=== PATIENT | female | born 1965 | race Caucasian/White ===

== ENCOUNTER 2020-12-13 14:48 | Emergency (ER) | payer MEDICARE, MEDICAID, SELFPAY | END 2020-12-13 15:00 | disposition left against medical advice (07) | LOC: EXPCOLL 14:54 | PROVIDERS: Emergency Provider Nurse Practitioner; PCP Nurse Practitioner Family | DX: Z53.21 Procedure and treatment not carried out due to patient leaving prior to being seen by health care provider (principal) | CPT/HCPCS: 99199 ==

== ENCOUNTER 2020-12-13 15:18 | Emergency (ER) | payer MEDICARE, MEDICAID, SELFPAY ==
[2020-12-13 15:23] VITALS: BP 163/81; PULSE 90; RESP 14; TEMP 36.5; O2SAT 99
[2020-12-13 15:31] VITALS: BP 142/78; PULSE 90; RESP 16; TEMP 36.5; O2SAT 98
--- NOTE | 2020-12-13 16:00 | ED.GENADULT ---
HPI - General Adult General Chief complaint: Eye Problems Stated complaint: redness around right eye Time Seen by Provider: 12/13/20 15:33 History of Present Illness HPI narrative: Patient is a 55-year-old female who presents ER with multiple complaints. First complaint is little bit of redness beneath her right eye. She awoke with this this morning. It is itchy in nature. There is no pustules or vesicles. There is no pain to the eye or change in vision. No tearing. No sinus congestion or sore throat or cough. Patient also reports that she developed some dental pain 2 days ago when her tooth broke off eating a candy bar. She thinks she may have a dental infection is causing the redness to the eye. Lastly patient is noticed some pus that it occasionally comes out of her left great toe since having her toenail removed over a year ago. The foot and toe are not red or hot or swollen. She has no pain. Last drainage that she had was yesterday. Related Data Home Medications Medication Instructions Recorded Confirmed hydrochlorothiazide 12/13/20 losartan 12/13/20 metformin mg PO 12/13/20 Allergies Allergy/AdvReac Type Severity Reaction Status Date / Time No Known Drug Allergies Allergy Unknown Unknown Verified 12/13/20 15:35 Review of Systems Constitutional: Constitutional: Denies chills, Denies fever(s) and Denies weakness Eyes: Eyes: Denies change in vision and Denies photophobia Comments: Redness beneath right eye ENT: Denies nasal congestion and Denies sore throat Musculoskeletal: Musculoskeletal: Denies arthralgias, Denies joint swelling and Denies muscle cramps Integumentary/Breasts: Skin/Breast: Reports pruritus, Reports erythema and Denies rash PMFSH Past Medical History Medical History (Updated 12/13/20 @ 16:11 by Erick Matthews MD) Diabetes Hypertension Stroke Surgical History Surgical History (Updated 12/13/20 @ 16:07 by Erick Matthews MD) H/O tubal ligation Social History Social History (Updated 12/13/20 @ 16:07 by Erick Matthews MD) Smoking status: Current every day smoker Exam Narrative: Exam Narrative: GENERAL: Well-appearing, well-nourished, and in no acute distress. HEAD: Normocephalic, atraumatic. EYES: PERRLA and EOMI. Mild redness beneath the right eye with normal conjunctiva and no tearing or discharge. No vesicles or pustules. No infection to the lashes. ENT: Mucous membranes moist. Poor dentition without discernible abscess to drain. EXTREMITIES: Focused exam left great toe reveals a nearly remove toenail. No expressible purulence. No redness or tenderness or warmth. NEURO: Alert and oriented x3. PSYCH: Normal mood and affect. Course Course Emergency Course: Keflex should be adequate to cover: Intentional infection of the payy-huee-idi gentleman Saman right ear the eye 3 weeks as well as potential dental infection. Vital Signs Vital signs: Vital Signs Temperature 97.7 F 12/13/20 15:23 Pulse Rate 90 12/13/20 15:23 Respiratory Rate 14 12/13/20 15:23 Blood Pressure 163/81 H 12/13/20 15:23 Pulse Oximetry 99 12/13/20 15:23 Temperature 97.7 F 12/13/20 15:31 Pulse Rate 90 12/13/20 15:31 Respiratory Rate 16 12/13/20 15:31 Blood Pressure 142/78 H 12/13/20 15:31 Pulse Oximetry 98 12/13/20 15:31 Medical Decision Making Vital Signs Vital Signs: Vital Signs Temperature 97.7 F 12/13/20 15:23 Pulse Rate 90 12/13/20 15:23 Respiratory Rate 14 12/13/20 15:23 Blood Pressure 163/81 H 12/13/20 15:23 Pulse Oximetry 99 12/13/20 15:23 Temperature 97.7 F 12/13/20 15:31 Pulse Rate 90 12/13/20 15:31 Respiratory Rate 16 12/13/20 15:31 Blood Pressure 142/78 H 12/13/20 15:31 Pulse Oximetry 98 12/13/20 15:31 Discharge Plan Discharge Clinical Impression: Cellulitis of face, Pain, dental Patient Disposition: Home, Self-Care Condition: Stable Instructions: Antibiotic Form, Cellul
== END 2020-12-13 16:24 | disposition home or self-care (01) ==
PROVIDERS: Emergency Provider Emergency Medicine; PCP Nurse Practitioner Family
DX: L03.211 Cellulitis of face (principal); K08.89 Other specified disorders of teeth and supporting structures; E11.9 Type 2 diabetes mellitus without complications; I10 Essential (primary) hypertension; Z86.73 Personal history of transient ischemic attack (TIA), and cerebral infarction without residual deficits; F17.200 Nicotine dependence, unspecified, uncomplicated; Z79.84 Long term (current) use of oral hypoglycemic drugs
CPT/HCPCS: 99283

== ENCOUNTER 2021-12-16 19:38 | Emergency (ER) | payer MEDICARE, MEDICAID, SELFPAY ==
[2021-12-16] VITALS (13 sets, daily range): BP systolic 112–131; BP diastolic 69–87; PULSE 78–92; RESP 12–26; TEMP 36.8; O2SAT 95–100
--- NOTE | ~2021-12-16 | XR_ITS ---
XR chest 2V DATE: 12/16/2021 21:45 INDICATION: Tracheostomy confirmation TECHNIQUE: AP chest COMPARISON: None FINDINGS: A tracheostomy tube appears in satisfactory position. Normal heart size. No hilar or mediastinal enlargement. No pulmonary infiltrate or consolidation. Minimal discoid atelectasis or scarring at the left lung ba se. No pleural effusion or pulmonary vascular congestion or pneumothorax. IMPRESSION: Tracheostomy in satisfactory position Minimal discoid atelectasis or scarring at left base Reviewed, dictated and finalized at location A.
--- NOTE | 2021-12-16 19:55 | PC.NURSE ---
Dr. Posada replaced 3.0 shiley intially and then used 5.0 shiley to keep trachostomy open.
--- NOTE | 2021-12-16 21:21 | PC.NURSE ---
Dtr at bedside. No complaints. Dtr states she will like to transport pt home.
--- NOTE | 2021-12-16 21:26 | ED.SOB ---
HPI - SOB/Dyspnea General Chief Complaint: Shortness of Breath/Dyspnea Stated Complaint: SOB, TRACH Time Seen by Provider: 12/16/21 19:58 Source: patient, family and old records reviewed History of Present Illness HPI Narrative: Patient presented with trach dislodgment. Patient has a history of dislodging her trach. She has had a trach for approximately 5 months which was performed at [facility] [place] she took her trach ties off because they thought was choking her and she coughed her trach out family tried to replace the trach however she has a history of her trach site closing very rapidly called EMS EMS was unable to place any device in the trach site and she was brought into the ER for by. Related Data Home Medications Medication Instructions Recorded Confirmed hydrochlorothiazide 12/13/20 losartan 12/13/20 metformin mg PO 12/13/20 Allergies Allergy/AdvReac Type Severity Reaction Status Date / Time No Known Drug Allergies Allergy Unknown Unknown Verified 12/13/20 15:35 Review of Systems Review of Systems: ROS unobtainable: Yes unobtainable due to medical condition PMFSH Past Medical History Medical History Diabetes Hypertension Stroke Surgical History Surgical History H/O tubal ligation Social History Social History Smoking status: Current every day smoker Exam Narrative: GENERAL: Well-appearing, well-nourished. HEAD: Normocephalic, atraumatic. EYES: PERRLA and EOMI. ENT: Nares clear, no rhinorrhea or epistaxis. Mucous membranes moist. NECK: Supple. No masses. No JVD CHEST: Diffuse rhonchi, mild respiratory distress HEART: Regular rate and rhythm. No murmur heard. Normal peripheral pulses. ABDOMEN: Soft, nontender, nondistended, normal active bowel sounds. EXTREMITIES: Normal range of motion. No edema. SKIN: Warm, dry, no rash. NEURO: No focal deficits. Alert and oriented x3. PSYCH: Normal mood and affect. Course Reevaluation(s) Reevaluation #1: Patient feels much better after her trach replacement history and plan confirmed with patient and family patient refused any further interventions regarding her tracheostomy site Date: 12/16/21 Time: 21:31 Vital Signs Vital signs: Vital Signs Temperature 36.8 C 12/16/21 19:41 Pulse Rate 92 12/16/21 19:41 Respiratory Rate 20 12/16/21 19:41 Blood Pressure 112/69 12/16/21 19:41 Pulse Oximetry 96 12/16/21 19:41 Temperature 36.8 C 12/16/21 19:49 Pulse Rate 86 12/16/21 21:15 Respiratory Rate 22 H 12/16/21 22:25 Blood Pressure 131/69 12/16/21 21:02 Pulse Oximetry 99 12/16/21 22:25 Procedures Other Procedure Procedure 1: Other Procedure: Emergent replacement concent not obtained. tracheotomy pathway visulized 5.0 Shiley replaced pt tolerated procedure MDM - SOB/Dyspnea MDM Narrative Medical decision making narrative: H&P as above, vss, pt looks clinically well, exam with patient in mild respiratory distress, imaging with appropriate placement of trach tube additional labs/img considered, symptomatic relief available as needed, on reevaluation pt continues to looks clinically well. Suspect patient did because her trach tube dislodgment because she did not use her trach ties. plan to tx/monitor as op w/ pcm f/u findings/plan discussed with pt, pt agree/comfortable with plan, return precautions given Imaging Data Radiologist's impression: Impressions Chest X-Ray 12/16/21 21:57 IMPRESSION: Tracheostomy in satisfactory position Minimal discoid atelectasis or scarring at left base Critical Care Time Critical Care Time Critical Care Time: Yes Total Critical Care Time: 30 Discharge Plan Discharge Clinical Impression: Trachea displaced Patient Disposition: Home, Self-Care Condition: Improved Instructions: A
== END 2021-12-16 22:26 | disposition home or self-care (01) ==
PROVIDERS: Emergency Provider Emergency Medicine; PCP Nurse Practitioner Family
DX: Z43.0 Encounter for attention to tracheostomy (principal); E11.9 Type 2 diabetes mellitus without complications; I10 Essential (primary) hypertension; Z86.73 Personal history of transient ischemic attack (TIA), and cerebral infarction without residual deficits; Z79.84 Long term (current) use of oral hypoglycemic drugs; F17.210 Nicotine dependence, cigarettes, uncomplicated
CPT/HCPCS: 71046; 99284

== ENCOUNTER 2022-03-12 10:25 | Inpatient (IN) | payer MEDICARE, MEDICAID, SELFPAY ==
[2022-03-12] VITALS (28 sets, daily range): BP systolic 104–141; BP diastolic 70–106; PULSE 86–117; RESP 13–31; TEMP 36.2–36.6; O2SAT 90–100; BMI 24.2
--- NOTE | ~2022-03-12 | XR_ITS ---
EXAM: XR G tube replacement w image DATE: 03/18/2022 15:14 HISTORY: g tube replaced today . COMPARISON: None available. FINDINGS: Contrast instillation via G-tube, with contrast filling the stomach. No extravasation. Nor mal bowel gas pattern. No organomegaly. No abnormal abdominal calcification. Regional bones and soft tissues normal for age. IMPRESSION: Appropriately positioned G-tube. Reviewed, dictated and finalized at location K.
--- NOTE | ~2022-03-12 | XR_ITS ---
XR chest 1V portable 03/12/2022 10:56 Indication: Shortness of breath Procedure: AP portable chest Comparison: 12/16/2021 Findings: Cardiomegaly. There is bilateral interstitial infiltrates which may represent pneumonia or edema. There is left basilar atelectasis/scarring. No acute osseous abnormality. There is a gastric t ube. Impression: 1: Bilateral interstitial infiltrates may represent edema or pneumonia. Reviewed, dictated and finalized at location B. Impression: 1: Bilateral interstitial infiltrates may represent edema or pneumonia.
--- NOTE | ~2022-03-12 | XR_ITS ---
XR chest 1V portable 03/16/2022 05:35 Indication: Pneumonia Procedure: AP portable chest Comparison: 03/12/2022 and 12/16/2021 Findings: There are bibasilar infiltrates which are unchanged from 03/12/2022 which may reflect atele ctasis or pneumonia. Mildly elevated right diaphragm. Heart size normal. No significant pleural effus ion, edema or pneumothorax. No acute osseous abnormality. Impression: 1: Bibasilar infiltrates may reflect atelectasis and/or pneumonia. Reviewed, dictated and finalized at location A. Impression: 1: Bibasilar infiltrates may reflect atelectasis and/or pneumonia.
[2022-03-12] MEDS: MORPHINE SULFATE (*CRX) 4 MG/ML INJ IV PUSH (10:41)
--- NOTE | 2022-03-12 10:43 | ECG_ITS ---
Measurements Intervals [place] Rate: 104 P: 74 NV: 157 QRS: 0 QRSD: 92 T: 5 QT: 373 QTc: 492 Interpretive Statements SINUS TACHYCARDIA MINIMAL ST DEPRESSION [0.025+ mV ST DEPRESSION] NONSPECIFIC ST CHANGES, WITH BORDERLINE ELEVATION LEAD V2 ABNORMAL RHYTHM ECG NO PREVIOUS ECG AVAILABLE FOR COMPARISON Electronically Signed On 03-12-2022 22:11:43 CDT by Marcia Hernandez M.D.
[2022-03-12] MEDS: LORazepam INJ (*CRX) 2 MG/ML VIAL 0.5 MG IV PUSH (10:51)
[2022-03-12 11:16] LABS: Basophils Percent Auto 0.5 % (0.2-1.2); Eosinophils Absolute Auto 0.5 K/mm3 (0-0.3); Eosinophils Percent Auto 6.1 % (0-4.4); Hematocrit 37.4 % (37.0-47.0); Hemoglobin 11.4 g/dL (12.0-15.0); Immature Granulocyte Absolute 0.02 K/mm3 (0.00-0.031); Immature Granulocyte Percent A 0.2 % (0-0.5); Lymphocytes Absolute Auto 3.13 K/mm3 (0.9-3.2); Mean Corpuscular HGB Conc 30.5 g/dl (32-36); Mean Corpuscular Hemoglobin 27.4 pg (26-34); Mean Corpuscular Volume 89.9 fl (80-100); Mean Platelet Volume 11.4 fl (7.4-10.4); Monocytes Absolute Auto 0.5 K/mm3 (0.1-0.6); Monocytes Percent Auto 6.3 % (2.6-8.5); Neutrophils Percent Auto 48.9 % (45.5-73.1); Platelet Count Result 407 k/mm3 (150-375); Red Blood Count 4.16 M/mm3 (4.2-5.4); Red Cell Distribution Width 16.5 % (11.5-14.5); White Blood Count 8.2 K/mm3 (4.5-10.0)
[2022-03-12 11:20] LABS: Prothrombin Time 13.2 Seconds (11.1-14.7)
[2022-03-12 11:24] LABS: Alanine Aminotransferase 19 U/L (6-35); Albumin Level 4.4 g/dL (3.5-5.1); Alkaline Phosphatase 98 U/L (38-126); Anion Gap 14 mmol/L (8-16); Aspartate Amino Transferase 26 U/L (14-36); Bilirubin,Total 0.4 mg/dL (0.2-1.3); Blood Urea Nitrogen 27 mg/dL (7-17); Calcium 9.3 mg/dL (8.4-10.2); Carbon Dioxide 27 mmol/L (22-30); Chloride 100 mmol/L (98-107); Estimated CRCL calculation 66 ml/min; Estimated Glomerular Filt Rate > 60; Glucose 140 mg/dL (65-110); Potassium 3.8 mmol/L (3.4-5.0); Sodium 141 mmol/L (137-145)
[2022-03-12 11:34] LABS: NT Pro B Type Natriuretic Pept 168 pg/mL (5-100)
[2022-03-12 11:37] LABS: Troponin I 0.087 ng/mL (0.000-0.034)
--- NOTE | 2022-03-12 12:22 | WPDCN ---
Assessment and Plan Assessment and plan (1) History of tracheostomy: Code(s): Z98.890 - Other specified postprocedural states Status: Acute Plan ETT removed, trach placed, trach ties placed. Ok for dc given this is a bag sorter issue/trach. Follow up with ENT if needed. HPI Data of Consult Date/Time: 03/12/22 12:22 Primary Care Provider: Nenita Hernandez, [employer] Consult Narrative Narrative: Geovanna Marmolejo is a 56 year old female with hx of tracheostomy. Non cuffed. Trach fell out. Small ett placed. ENT consulted for trach placement. Review of Systems Review of Systems: ROS unobtainable: Yes unobtainable due to medical condition PMFSH Past Medical History Medical History Diabetes Hypertension Stroke Surgical History Surgical History H/O tubal ligation Social History Social History Smoking status: Current every day smoker Meds Home Medications and Allergies Home Medications Medication Instructions Recorded Confirmed Type cephalexin 500 mg capsule 500 mg PO TID #21 caps 12/13/20 Rx hydrochlorothiazide 25 mg tablet 12/13/20 History losartan 100 mg tablet 12/13/20 History metformin 500 mg tablet,extended mg PO 12/13/20 History release 24 hr Allergies Allergy/AdvReac Type Severity Reaction Status Date / Time No Known Drug Allergies Allergy Unknown Unknown Verified 03/12/22 10:34 Vital Signs Vital Signs - 24 hr 03/12/22 10:23 03/12/22 10:34 03/12/22 10:47 Temperature 36.6 C Pulse Rate 102 H 102 H 102 H Respiratory Rate 17 31 H Blood Pressure 141/106 H 117/77 Pulse Oximetry 94 100 Oxygen Delivery Room Air 03/12/22 10:32 03/12/22 10:33 03/12/22 10:46 Temperature Pulse Rate 100 102 H 103 H Respiratory Rate 13 25 H 18 Blood Pressure 117/77 Pulse Oximetry 99 100 100 Oxygen Delivery 03/12/22 10:47 03/12/22 11:00 03/12/22 11:15 Temperature Pulse Rate 102 H 102 H 99 Respiratory Rate 26 H 27 H 25 H Blood Pressure Pulse Oximetry 100 98 Oxygen Delivery 03/12/22 11:30 03/12/22 11:45 03/12/22 12:19 Temperature Pulse Rate 103 H 117 H Respiratory Rate 22 H 15 Blood Pressure Pulse Oximetry 99 99 Oxygen Delivery 03/12/22 12:19 Temperature Pulse Rate Respiratory Rate Blood Pressure Pulse Oximetry 96 Oxygen Delivery Room Air Exam HENMT: Other: ETT in place. Results Labs CBC & Chem 7: 03/12/22 10:56 03/12/22 10:56 Labs: Short CBC 03/12/22 Range/Units 10:56 WBC 8.2 (4.5-10.0) K/mm3 Hgb 11.4 L (12.0-15.0) g/dL Hct 37.4 (37.0-47.0) % Plt Count 407 H (150-375) k/mm3 BMP 03/12/22 10:56 Sodium 141 Potassium 3.8 Chloride 100 Carbon Dioxide 27 BUN 27 H Creatinine 0.80 Glucose 140 H Calcium 9.3 Cardiac Enzymes 03/12/22 Range/Units 10:56 Troponin I 0.087 H* (0.000-0.034) ng/mL Liver Function 03/12/22 Range/Units 10:56 Total Bilirubin 0.4 (0.2-1.3) mg/dL AST 26 (14-36) U/L ALT 19 (6-35) U/L Alkaline Phosphatase 98 (38-126) U/L Albumin 4.4 (3.5-5.1) g/dL
--- NOTE | 2022-03-12 14:29 | ED.GENADULT ---
HPI - General Adult General Chief complaint: Unspecified Stated complaint: trach problems Time Seen by Provider: 03/12/22 10:30 Source: patient and EMS Mode of arrival: EMS Limitations: physical limitation and clinical condition History of Present Illness HPI narrative: 56-year-old with a history of hypertension, CVA s/p tracheostomy and, G-tube brought in from home with complaints of dislodged tracheostomy tubing since last night, but this morning she has been having more difficulty in breathing and to call 911 upon their arrival patient was in respiratory distress, ETT was placed through the tracheostomy and was later transferred to the ER. Patient states that she was bleeding around the trach. Daughter who is at the bedside states that she has been on doxycycline for cough and she has been having more secretions. No history of fever or chills. Onset (ago): day(s) (1) Associated symptoms: denies other symptoms Related Data Home Medications Medication Instructions Recorded Confirmed hydrochlorothiazide 25 mg tablet 12/13/20 losartan 100 mg tablet 12/13/20 metformin 500 mg tablet,extended mg PO 12/13/20 release 24 hr Allergies Allergy/AdvReac Type Severity Reaction Status Date / Time No Known Drug Allergies Allergy Unknown Unknown Verified 03/12/22 10:34 Review of Systems Review of Systems: All systems reviewed & are unremarkable except as noted in HPI and below Eyes: Eyes: Reports no additional eye complaints ENT: Reports system reviewed and no additional complaints, except as documented Cardiovascular: Cardiovascular: Reports no additional cardiovascular complaints Respiratory: Respiratory: Reports as per HPI Gastrointestinal: Gastrointestinal: Reports no additional gastrointestinal complaints Musculoskeletal: Musculoskeletal: Reports no additional musculoskeletal complaints Neurologic: Reports system reviewed and no additional complaints, except as documented Psychiatric: Psychiatric: Reports no additional psychiatric complaints [facility], [facility] Past Medical History Medical History Diabetes Hypertension Stroke Surgical History Surgical History H/O tubal ligation Social History Social History Smoking status: Current every day smoker Exam Narrative: GENERAL: ill -appearing, thin, and in no acute distress. HEAD: Normocephalic, atraumatic. EYES: PERRLA and EOMI. ENT: Nares clear, no rhinorrhea or epistaxis. Mucous membranes moist. NECK: Supple. has tracheostomy, the ostomy site is edematous, narrow and mild bleeding noted CHEST: Conducted sounds from the tracheostomy and in mild respiratory distress. HEART: Regular rate and rhythm. No murmur heard. Normal peripheral pulses. ABDOMEN: Soft, nontender, nondistended, has a G-tube EXTREMITIES: Normal range of motion. No edema. SKIN: Warm, dry, no rash. NEURO: . Alert and oriented x3. Old CVA PSYCH: Normal mood and affect. Course Course Emergency Course: Patient upon arrival to ER was extremely anxious, mild respiratory distress. I did consult Dr. Jimenez for possible placement of the tracheostomy collar as ostomy site was quite edematous and bleeding. Meanwhile I did give her IV morphine for pain and 0.5 of Ativan for anxiety and pain control. Dr. Jimenez was here in the ER to replace the tracheostomy collar for details please look into his note. Once the collar was replaced patient started feeling better. I did review her lab work with the patient and her daughter agreed for admission. Discussed with hospitalist agreed to admit Vital Signs Vital signs: Vital Signs Temperature 36.6 C 03/12/22 10:23 Pulse Rate 102 H 03/12/22 10:23 Respiratory Rate 17 03/12/22 10:23 Blood Pressure 141/106 H 03/12/22 10:23 Pulse Oximetry 94 03/12/22 10:23 Oxygen Delivery Room Air
--- NOTE | 2022-03-12 15:10 | ECG_ITS ---
Measurements Intervals [place] Rate: 103 P: 47 [place]: 148 QRS: 24 QRSD: 88 T: 50 QT: 370 QTc: 486 Interpretive Statements SINUS TACHYCARDIA POOR R-WAVE PROGRESSION BASELINE ARTIFACT COMPARED TO ECG 03/12/2022 10:54:[address] ELEVATION IN V2 IS LESS PROMINENT. Electronically Signed On 03-12-2022 22:18:45 CDT by Marcia Hernandez M.D.
--- NOTE | 2022-03-12 16:00 | PM.IMHP ---
H&P: HPI History of Present Illness Date/Time: 03/12/22 16:00 Chief Complaint: Tracheostomy problems. Narrative: This is an unfortunate 56-year-old female with history of stroke status post tracheostomy and G-tube placement, hypertension, insulin-dependent diabetes, and paroxysmal atrial fibrillation who presented to the emergency department form home for evaluation of tracheostomy problems. She communicates by writing and some of the following is supplemented via discussions with her daughter who is at bedside, with the patient's permission. Last evening her tracheostomy was dislodged for approximately an hour before her daughter was able to put it back in and she reportedly slept well thereafter This morning she was having increasing difficulties breathing due to significant secretions and EMS was summoned. Her tracheostomy was replaced in the ER per Dr. Jimenez. Chest x-ray today shows bilateral interstitial infiltrates which may represent edema or pneumonia and with further questioning she was recently started on doxycycline due to increasingly thick secretions. Troponins were drawn on arrival to the ER and they have continued to increase to a high of 3.030 on her 6 hour and she is being admitted in this setting. The patient is followed by a front services agent at [facility] and according to her daughter, the patient has mild coronary artery disease. Family members have had some cold-like symptoms though all have tested negative for COVID recently. The patient herself denies chest pain as well as shortness of breath, nausea, vomiting, sweats, palpitations, orthopnea, PND, and lower extremity edema. Review of Systems Review of Systems: Twelve systems were reviewed. The patient is on continuous tube feeds. She takes nothing by mouth but will occasionally wet her mouth for oral care. No fever. She denies headache. No sinus congestion or sore throat. She denies shortness of breath at this time. No dysuria or diarrhea. Except as documented, all other systems were reviewed and are negative. [facility] Past Medical History Medical History (Updated 03/12/22 @ 20:48 by Vielka Moon PA-C) Bipolar disorder Cerebrovascular accident Chronic obstructive pulmonary disease Coronary artery disease Nonobstructing disease, per patient report. Depression with anxiety Gastroesophageal reflux disease Hypertension Paroxysmal atrial fibrillation Type 2 diabetes mellitus Surgical History Surgical History (Updated 03/12/22 @ 15:19 by Vielka Moon PA-C) History of percutaneous endoscopic gastrostomy History of tonsillectomy History of tracheostomy History of tubal ligation Family History Family History Father Diabetes mellitus Mother Cancer Breast cancer Sibling Hypertension Acute myocardial infarction Cerebrovascular accident History of blood clots Social History Social History (Updated 03/12/22 @ 20:40 by Vielka Moon PA-C) Social History: Surrogate decision maker: Catina Marmolejo, daughter. Code status: Do not resuscitate. Smoking packs per day: 2 Smoking cigarettes per day: 40.0 Years smoked: 40 Smoking pack-years: 80.00 Smoking status: Former smoker Tobacco type: cigarettes Additional smoking assessment comments: Quit in May 2021 following stroke. Spiritual care concerns: No Meds Home Medications and Allergies Home Medications Medication Instructions Recorded Confirmed Type hydrochlorothiazide 25 mg tablet 25 mg feeding tube DAILY 12/13/20 03/12/22 History metformin 500 mg tablet,extended 500 mg PO DAILY 12/13/20 03/12/22 History release 24 hr alprazolam 0.25 mg tablet 0.25 mg feeding tube DAILY PRN 03/12/22 03/12/22 History Anxiety clopidogrel 75 mg tablet 75 mg feeding tube DAILY 03/12/22 03/12/22 History ezetimibe 10 mg tablet 10 mg feeding tube DAILY 03/12/22 03/12/22 History fluticasone propionate 50 1 ea intranasal Q12H
--- NOTE | 2022-03-12 16:47 | PC.NURSE ---
patient transferred to ICU with iv abx infusing
[2022-03-12] MEDS: SODIUM CHLORIDE 0.9% IV 1,000 ML 75 ML IV CONT (17:00)
--- NOTE | 2022-03-12 17:01 | ADMIMU ---
This patient, Geovanna Marmolejo, was admitted to IMU status, and placed in Intensive Care Unit-7. Patient/family oriented to hospital policies and general routines including ID bracelet, bed and alarms, visiting hours, pain management, procedures, bathroom and other care routines, personal items, smoking policy, room service/diet, and visiting hours. Valuables list has been completed. Information on how to activate the Rapid Response Team has been discussed. Patient/Family are encouraged to report perceived risks to care and to ask questions if they do not understand what they are told or what they should do.
[2022-03-12] MEDS: SCOPOLAMINE 1.5 MG PATCH TRANSDERM (21:15)
[2022-03-12] MEDS: IPRATROPIUM BR 0.02% INH SOLN 0.5 MG/2.5 ML VIAL INHALATION (21:45)
[2022-03-12] MEDS: ALBUTEROL SULFATE NEB 2.5 MG/3 ML INH 5 MG INHALATION (21:45)
[2022-03-12 22:37] LABS: SARS-CoV-2 RNA PCR Negative
[2022-03-12] MEDS: ENOXAPARIN 60 MG/0.6 ML SYRINGE SUB-Q (22:51)
[2022-03-12] MEDS: GABAPENTIN 100 MG CAPSULE FEED TUBE (22:51)
[2022-03-12] MEDS: METOPROLOL TARTRATE 12.5 MG TABLET FEED TUBE (22:52)
[2022-03-12] MEDS: QUEtiapine FUMARATE 25 MG TABLET 50 MG FEED TUBE (22:52)
[2022-03-12 23:35] LABS: Hemoglobin A1C 6.4 % (<5.7)
[2022-03-13] VITALS (22 sets, daily range): BP systolic 99–121; BP diastolic 62–78; PULSE 68–91; RESP 20–28; TEMP 36.3–36.8; O2SAT 92–100; BMI 24.7
[2022-03-13 04:33] LABS: Basophils Percent Auto 0.3 % (0.2-1.2); Eosinophils Percent Auto 0.2 % (0-4.4); Hematocrit 33.6 % (37.0-47.0); Hemoglobin 10.2 g/dL (12.0-15.0); Immature Granulocyte Absolute 0.04 K/mm3 (0.00-0.031); Immature Granulocyte Percent A 0.4 % (0-0.5); Lymphocytes Absolute Auto 3.29 K/mm3 (0.9-3.2); Lymphocytes Percent Auto 30.3 % (18.3-44.2); Mean Corpuscular HGB Conc 30.4 g/dl (32-36); Mean Corpuscular Hemoglobin 27.3 pg (26-34); Mean Corpuscular Volume 89.8 fl (80-100); Mean Platelet Volume 11.4 fl (7.4-10.4); Monocytes Absolute Auto 0.9 K/mm3 (0.1-0.6); Monocytes Percent Auto 7.8 % (2.6-8.5); Neutrophils Absolute Auto 6.6 K/mm3 (1.3-6.7); Platelet Count Result 384 k/mm3 (150-375); Red Blood Count 3.74 M/mm3 (4.2-5.4); Red Cell Distribution Width 16.6 % (11.5-14.5); White Blood Count 10.9 K/mm3 (4.5-10.0)
[2022-03-13 04:47] LABS: Alanine Aminotransferase 12 U/L (6-35); Albumin Level 3.9 g/dL (3.5-5.1); Alkaline Phosphatase 72 U/L (38-126); Anion Gap 8 mmol/L (8-16); Aspartate Amino Transferase 35 U/L (14-36); Bilirubin,Total 0.2 mg/dL (0.2-1.3); Blood Urea Nitrogen 29 mg/dL (7-17); Calcium 8.6 mg/dL (8.4-10.2); Carbon Dioxide 32 mmol/L (22-30); Chloride 102 mmol/L (98-107); Estimated CRCL calculation 61 ml/min; Estimated Glomerular Filt Rate > 60; Glucose 118 mg/dL (65-110); Lactate Dehydrogenase 376 U/L (313-618); Magnesium 2.1 mg/dL (1.6-2.3); Potassium 3.4 mmol/L (3.4-5.0); Sodium 142 mmol/L (137-145)
--- NOTE | 2022-03-13 06:02 | PCRCNOTE ---
Window of time for administration has passed. See next scheduled administration.
[2022-03-13] MEDS: SODIUM CHLORIDE 0.9% IV 1,000 ML 75 ML IV CONT ×2 (06:19→21:44)
[2022-03-13] MEDS: ONDANSETRON INJ 4 MG/2 ML VIAL IV PUSH (08:21)
[2022-03-13] MEDS: IPRATROPIUM BR 0.02% INH SOLN 0.5 MG/2.5 ML VIAL INHALATION ×3 (08:44→22:29)
[2022-03-13] MEDS: ALBUTEROL SULFATE NEB 2.5 MG/3 ML INH 5 MG INHALATION ×3 (08:44→22:28)
[2022-03-13] MEDS: LANSOPRAZOLE ORAL SUSP 30 MG/10 ML ORAL.SUSP FEED TUBE (09:11)
[2022-03-13] MEDS: GABAPENTIN 100 MG CAPSULE FEED TUBE ×2 (09:12→21:47)
[2022-03-13] MEDS: EZETIMIBE 10 MG TABLET FEED TUBE (09:12)
[2022-03-13] MEDS: CLOPIDOGREL BISULFATE 75 MG TABLET FEED TUBE (09:12)
--- NOTE | 2022-03-13 11:36 | PM.CNCAR ---
Assessment and Plan Assessment and plan (1) Type 2 AK (myocardial infarction): Code(s): I21.A1 - Myocardial infarction type 2 Status: Acute Assessment and Plan: Patient had a type 2 AK, secondary to for trach malfunction and difficulty breathing which caused hypertension and tachycardia. Not ACS event Transient EKG changes and elevated troponins up to 3.0 No known CAD as far as I am aware of Check echo Continue Plavix, beta-arpit and lipid lowering therapy. (Patient is on ezetimibe, ice whom she has intolerance to statins. ) Follow-up with Dr. Manzanares after discharge (2) Tracheostomy malfunction: Code(s): J95.03 - Malfunction of tracheostomy stoma Status: Acute Assessment and Plan: Has a trach, now functioning well. More sputum production than usual. (3) Paroxysmal atrial fibrillation: Code(s): I48.0 - Paroxysmal atrial fibrillation Status: Acute Assessment and Plan: History of paroxysmal atrial fibrillation which caused her stroke. Maintaining sinus rhythm here. Previously on Eliquis plus Plavix, now just on Plavix. Suggested the patient follow-up with whomever discontinued the Eliquis; perhaps continue Eliquis and discontinue Plavix? Patient has already been referred to [facility] for to consider a Watchman left atrial appendage occlusion device (4) Cerebrovascular accident: Code(s): I63.9 - Cerebral infarction, unspecified Status: Acute Assessment and Plan: History of stroke in May 2021 secondary to paroxysmal atrial fibrillation. Required a tracheostomy and G-tube History of Present Illness History of Present Illness Consult date/time: 03/13/22 11:36 Reason For Visit: Pneumonia Narrative: Geovanna Marmolejo is a 56 y.o. female whom I was asked to see at the request of Vielka Moon for my advise and opinion regarding her elevated troponins, in consultation. Ms. Marmolejo has a h/o history of stroke status in 05/2021 secondary to AFib, now status post tracheostomy and G-tube placement. She also has a history of hypertension, insulin-dependent diabetes, paroxysmal atrial fibrillation and, per Epic, a h/o schizoaffective disorder and COPD. She previously was taking Eliquis, now just Plavix due to excessive bruising. She has been referred to [facility] for consideration of a Watchman device. Her regular import customer service manager is Dr. Manzanares in [place]. Patient her daughter deny any history of CHF or CAD, no h/o CP. Some chronic SOB relieved w/ inhalers. Ms. Marmolejo presented to the emergency department form home for evaluation of tracheostomy problems. Apparently the tracheostomy was dislodgedthe night of the March 11 and multiple attempts to replace that were not successful. Then yesterday morning on March 12 she was having difficulty breathing. She was in respiratory distress when EMS arrived, with airway obstruction and the sputum coming from the stoma. Blood pressure 154/60, pulse 140 and respiratory rate 28, O2 sat 98%. An a ET tube was placed through the bleeding and swollen tracheostomy in the field and she was suction and the area cleaned. In the emergency room she was extremely anxious and in mild respiratory distress on arrival to the emergency room. Vitals were stable, pulse 102, O2 sat 94%. She was given IV morphine and Ativan. Once the trach collar was replaced she was feeling better. History was obtained from the patient, though was difficult because of her trach and difficulty speaking; she was able to write notes. History is also obtained from EMR, the patient's daughter, and her nurse. Review of Systems Constitutional: Constitutional: Denies difficulty sleeping Eyes: Eyes: Reports no additional eye complaints ENT:
--- NOTE | 2022-03-13 11:58 | ECHO_ITS ---
Patient Info Name: Geovanna Marmolejo Age: 56 years : 1965 Gender: Female Ht: 62 in Wt: 135 lbs BSA: 1.65 m2 HR: 78 bpm BP: 99 / 66 mmHg Heart Rhythm: Sinus Rhythm Technical Quality: Good Exam Date: 03/13/2022 12:51 PM Exam Location: [facility] Room: ICU7 Patient Status: Inpatient Admit Date: 03/12/2022 Staff Ordering Physician: Marcia Hernandez MD Dehydrogenation Converter Helper: Gail Chavis RDCS Attending Provider: Marika Whaley MD Referring Physician: Mary RUFF; Exam Type: CA echo doppler color flow Study Info Indications - NEW AFIB Complete two-dimensional, color flow and Doppler transthoracic echocardiogram is performed. Summary 1. Complete two-dimensional, color flow and Doppler transthoracic echocardiogram is performed. 2. Left ventricular chamber dimension is normal. 3. Left ventricular systolic function is mildly reduced, estimated at 40-45%. 4. Akinesis is noted of the apical 1/2 of the left ventricle. Appearance typical of takotsubo cardiomyopathy. 5. There is trace mitral valve regurgitation. Left Ventricle Left ventricular chamber dimension is normal. Left ventricular systolic function is mildly reduced, estimated at 40-45%. The left ventricular diastolic function is normal. Akinesis is noted of the apical 1/2 of the left ventricle. Appearance typical of takotsubo cardiomyopathy. Right Ventricle Right ventricular chamber dimension is normal. Left Atria Left atrial chamber dimension is normal. Right Atria Right atrial chamber dimension is normal. Aortic Valve The aortic valve is trileaflet. There is mild aortic valve sclerosis. Pulmonic Valve The pulmonic valve is normal. Mitral Valve The mitral valve has normal leaflets. There is trace mitral valve regurgitation. Tricuspid Valve The tricuspid valve leaflets are normal. Pericardium/Pleural The pericardium appears normal. Aorta The aortic root size at the sinus of Valsalva is normal. Left Ventricular Outflow Tract Name Value Normal LVOT 2D LVOT Diameter 2.0 cm LVOT Doppler LVOT Peak Gradient 6 mmHg LVOT Mean Gradient 3 mmHg LVOT VTI 25 cm LVOT VTI/AV VTI Ratio 0.8 LVOT Stroke Volume 74 ml LVOT CO 15.9 l/min LVOT CI 9.8 l/min/m2 Pulmonic Valve Name Value Normal PV Doppler PV Peak Gradient 2 mmHg Mitral Valve Name Value Normal MV Doppler MV Decel Slop
--- NOTE | 2022-03-13 13:00 | PM.IMPN ---
Progress Note: A&P Assessment and Plan (1) Pneumonia: Code(s): J18.9 - Pneumonia, unspecified organism Status: Acute Assessment and Plan: Chest x-ray shows Bilateral interstitial infiltrates pneumonia verses edema. Suspected pneumonia given increasing, thick secretions and family members with similar symptoms. blood cultures have returned positive for gram variable bacilli which could be contaminant but given that she has chronic lung disease, will consider gram negative legionella, pseudomonas, etc. SARS-CoV-2 by PCR was negative. Will change to Zosyn. (2) Non-STEMI (non-ST elevated myocardial infarction): Code(s): I21.4 - Non-ST elevation (NSTEMI) myocardial infarction Status: Acute Assessment and Plan: Patient was having no chest pain however her troponins increased to 3.0. CXR showing bilateral interstitial infiltrates. EKG showing ST-T wave changes in the inferior leads. Possibly related to respiratory distress and hypoxemic episode. No hx of CAD. Cardiology consulted and appreciate their input. Continue Plavix, Lopressor and Zetia. She cannot take statin therapy. Echocardiogram ordered and will follow up on this result. (3) Tracheostomy complication: Code(s): J95.00 - Unspecified tracheostomy complication Status: Acute Assessment and Plan: Tracheostomy was dislodged 03/11 in the evening and was replaced by her daughter; patient developed respiratory distress the morning of admission. Tracheostomy was exchanged by Dr. Jimenez in the ED. She is stable for discharge from his standpoint. (4) Type 2 diabetes mellitus: Code(s): E11.9 - Type 2 diabetes mellitus without complications Status: Acute Assessment and Plan: A1c 6.4. The patient's blood glucose was reviewed on 03/13. Glucose remains well controlled. Continue AccuCheks covering with sliding scale. Hypoglycemia protocol available as needed. Continue current medications. (5) Paroxysmal atrial fibrillation: Code(s): I48.0 - Paroxysmal atrial fibrillation Status: Acute Assessment and Plan: Patient maintaining sinus rhythm by telemetry. Continue Lopressor. Not on anticoagulation on admission. It appears that she was changed from Eliquis to Plavix sometime in the past for unclear reasons. (6) Chronic obstructive pulmonary disease: Code(s): J44.9 - Chronic obstructive pulmonary disease, unspecified Status: Acute Assessment and Plan: Stable. Coarse breath sounds. Continue nebulizer treatments. (7) Cerebrovascular accident: Code(s): I63.9 - Cerebral infarction, unspecified Status: Acute Assessment and Plan: Patient has a history of stroke status post tracheostomy and G-tube. No plans for ischemic evaluation as such will resume tube feedings. Increase activity level. PT and OT. Subjective Date/time seen: 03/13/22 13:00 Interval history: 56yo female with hx of CVA requiring PEG and Trach, DM and HTN here for tracheostomy dysfunction. Hx is limiting due to her trach and inability to talk. She feels hungry and wants to resume TF. She does not eat orally. No recent fever or chills. No CP. She was feeling well without complaints prior to admission. No hx of CAD. No hx of having a LHC. She did have a stress test at [facility] 1 year ago that was 'okay'. Exam Narrative: AF 97.6 101/62 75 24 94% Gen - NARD sitting up in bed Neck - midline trach secured. no bleeding noted. Chest - coarse breath sounds diffusely. CV - RRR S1/S2. Tele showing no acute dysrhythmias. Abd - Soft, NT, +BS, GTube secured with site clean and dry Ext - No pedal edema Psych - Nml mood and affect Skin - Warm and dry Objective Data Vital Signs Vital Signs: Vital Signs - 24 hr 03/12/22 13:15 03/12/22 15:59 03/12/22 16:10 Temperature Pulse Rate 105 H Respiratory Rate 25 H Blood Pressure 120/74 121/75 Pulse Oximetry 97 97 Ox
[2022-03-13] MEDS: POTASSIUM CHLORIDE 20 MEQ PACKET (FOR LIQUID) 40 MEQ FEED TUBE (13:58)
[2022-03-13] MEDS: ENOXAPARIN 40 MG/0.4 ML SYRINGE SUB-Q (13:58)
[2022-03-13 13:59] LABS: Glucose Point of Care 105 mg/dl (65-105)
[2022-03-13 18:32] LABS: Glucose Point of Care 121 mg/dl (65-105)
[2022-03-13] MEDS: QUEtiapine FUMARATE 25 MG TABLET 50 MG FEED TUBE (21:47)
[2022-03-13] MEDS: METOPROLOL TARTRATE 12.5 MG TABLET FEED TUBE (21:47)
[2022-03-14] VITALS (21 sets, daily range): BP systolic 109–156; BP diastolic 60–85; PULSE 68–109; RESP 16–30; TEMP 36.3–37.4; O2SAT 94–98
[2022-03-14] MEDS: ALBUTEROL SULFATE NEB 2.5 MG/3 ML INH 5 MG INHALATION ×4 (03:03→21:58)
[2022-03-14] MEDS: IPRATROPIUM BR 0.02% INH SOLN 0.5 MG/2.5 ML VIAL INHALATION ×4 (03:03→21:58)
[2022-03-14] MEDS: LANSOPRAZOLE ORAL SUSP 30 MG/10 ML ORAL.SUSP FEED TUBE (05:30)
[2022-03-14] MEDS: METOPROLOL TARTRATE 12.5 MG TABLET FEED TUBE ×2 (10:19→20:27)
[2022-03-14] MEDS: GABAPENTIN 100 MG CAPSULE FEED TUBE ×2 (10:19→20:27)
[2022-03-14] MEDS: ACETAMINOPHEN 325 MG TABLET 650 MG PO (10:20)
[2022-03-14] MEDS: EZETIMIBE 10 MG TABLET FEED TUBE (10:20)
[2022-03-14 10:25] LABS: Glucose Point of Care 174 mg/dl (65-105)
[2022-03-14] MEDS: ENOXAPARIN 40 MG/0.4 ML SYRINGE SUB-Q (10:31)
[2022-03-14 10:34] LABS: Basophils Percent Auto 0.5 % (0.2-1.2); Eosinophils Absolute Auto 0.1 K/mm3 (0-0.3); Immature Granulocyte Absolute 0.02 K/mm3 (0.00-0.031); Immature Granulocyte Percent A 0.2 % (0-0.5); Lymphocytes Absolute Auto 1.95 K/mm3 (0.9-3.2); Lymphocytes Percent Auto 24.2 % (18.3-44.2); Mean Corpuscular HGB Conc 31.3 g/dl (32-36); Mean Corpuscular Hemoglobin 27.4 pg (26-34); Mean Corpuscular Volume 87.7 fl (80-100); Mean Platelet Volume 11.3 fl (7.4-10.4); Monocytes Absolute Auto 0.5 K/mm3 (0.1-0.6); Monocytes Percent Auto 6.6 % (2.6-8.5); Neutrophils Absolute Auto 5.4 K/mm3 (1.3-6.7); Neutrophils Percent Auto 67.5 % (45.5-73.1); Platelet Count Result 337 k/mm3 (150-375); Red Blood Count 3.65 M/mm3 (4.2-5.4); Red Cell Distribution Width 16.8 % (11.5-14.5); White Blood Count 8.1 K/mm3 (4.5-10.0)
[2022-03-14 10:40] LABS: Albumin Level 3.6 g/dL (3.5-5.1); Anion Gap 9 mmol/L (8-16); Blood Urea Nitrogen 16 mg/dL (7-17); Calcium 8.3 mg/dL (8.4-10.2); Carbon Dioxide 26 mmol/L (22-30); Chloride 109 mmol/L (98-107); Estimated CRCL calculation 83 ml/min; Estimated Glomerular Filt Rate > 60; Glucose 170 mg/dL (65-110); Magnesium 1.8 mg/dL (1.6-2.3); Potassium 3.5 mmol/L (3.4-5.0); Sodium 144 mmol/L (137-145)
[2022-03-14] MEDS: CLOPIDOGREL BISULFATE 75 MG TABLET FEED TUBE (11:28)
--- NOTE | 2022-03-14 12:16 | PCNFU ---
Nutrition Follow-Up Complete: Swallowing Difficulties as related to CVA as evidenced by PEG tube feedings. Goal: Meet estimated nutritional needs Pt is making progress towards goal. Continue with current goal at this time. Pt current nutrition is Tube feeding of Glucerna 1.2 running at 40mL/hr over 22 hours. Recommendations: Continue increasing tube feeding rate by 10mL/hr ever Q4 hours until goal rate of 50mL/hr is met Last recorded weight is 61.7 kg, stable. Recommend re-weighing prior to discharge. Bowel Motility: No BM reported Labs Reviewed: Hgb 10.0, Hct 32.0, Cr 0.50, Glu 174 - Insulin not given Meds Noted: Tylenol, Albuterol, Plavix, Lovenox, Zetia, Gabapentin, Atrovent Neb, Lansoprazole, Lopressor, Zosyn Skin: Bilateral neck scab Additional Notes: Pt was refusing tube feeding but agreed to start receiving due to no oral PO intake and pt starting to feel hungry. Pt is receiving tube feedings of Glucerna 1.2 running at rate of 40mL/hr over 22 hours per PEG tube. This is providing 1056kcal, 53g of protein, and 708mL of water. Goal rate will provide 1320kcal, 66g of protein, and 886mL of water, meeting 100% of estimated kcal and protein needs. Pt is fairly tolerating tube feeding. Pt is receiving 30mL free water flushes every Q4 hours. Agree with diet orders at this time. Will continue to follow. Will monitor every Thursday and Thursday.
--- NOTE | 2022-03-14 12:27 | PM.IMPN ---
Progress Note: A&P Assessment and Plan (1) Pneumonia: Code(s): J18.9 - Pneumonia, unspecified organism Status: Acute Assessment and Plan: Chest x-ray shows bilateral interstitial infiltrates pneumonia verses edema. Suspected pneumonia given increasing, thick secretions and recent trach change under stressful conditions. Blood culture (1of2) have returned positive for gram variable bacilli from aerobic bottle only. SARS-CoV-2 by PCR was negative. Continue Zosyn. Follow up on final result. (2) Non-STEMI (non-ST elevated myocardial infarction): Code(s): I21.4 - Non-ST elevation (NSTEMI) myocardial infarction Status: Acute Assessment and Plan: Patient denies having chest pain however her troponins increased to 3.0. CXR showing bilateral interstitial infiltrates. EKG showing ST-T wave changes in the inferior leads. Possibly related to respiratory distress and hypoxemic episode. No hx of CAD. Cardiology consulted and appreciate their input. Continue Plavix, Lopressor and Zetia. She cannot take statin therapy. Echocardiogram pending (3) Tracheostomy complication: Code(s): J95.00 - Unspecified tracheostomy complication Status: Acute Assessment and Plan: Tracheostomy was dislodged 03/11 in the evening and was replaced by her daughter; patient developed respiratory distress the following morning (the morning of admission). Tracheostomy was exchanged by Dr. Jimenez in the ED. She is stable for discharge from his standpoint. Continue routine tracheostomy care. (4) Type 2 diabetes mellitus: Code(s): E11.9 - Type 2 diabetes mellitus without complications Status: Acute Assessment and Plan: A1c 6.4. The patient's blood glucose was reviewed on 03/14. Glucose remains reasonably well controlled. Continue AccuCheks covering with sliding scale. Hypoglycemia protocol available as needed. Tolerating tube feeding so will resume Lantus. (5) Paroxysmal atrial fibrillation: Code(s): I48.0 - Paroxysmal atrial fibrillation Status: Acute Assessment and Plan: Patient maintaining sinus rhythm by telemetry. Continue Lopressor. Not on anticoagulation on admission. It appears that she was changed from Eliquis to Plavix sometime in the past for unclear reasons. Continue to monitor on tele. (6) Chronic obstructive pulmonary disease: Code(s): J44.9 - Chronic obstructive pulmonary disease, unspecified Status: Acute Assessment and Plan: Stable. Coarse breath sounds. Continue nebulizer treatments. (7) Cerebrovascular accident: Code(s): I63.9 - Cerebral infarction, unspecified Status: Acute Assessment and Plan: Patient has a history of stroke status post tracheostomy and G-tube. Tube feedings resumed. Increase activity level as tolerated. Continue PT and OT. Subjective Date/time seen: 03/14/22 12:27 Interval history: 56yo female with hx of CVA requiring PEG and Trach, DM and HTN here for tracheostomy dysfunction. Patient slept poorly last night. She denies chest pain. She complains of frequent blood draws. Tolerating tube feedings. Daughter is in the room and she was updated with patient permission. She is requesting discharge home Review of Systems Review of Systems: ROS unobtainable: Yes unobtainable due to endotracheal tube Exam Narrative: AF 99.3 156/85 96 18 96% ra Gen - NARD sitting up in bed HEENT - dried blood at the nasolabial fold and left nares (dtr sates pt picks at these areas) Neck - midline trach secured. small amount of exudate at the base Chest - coarse breath sounds diffusely but improved today. nml RR CV - RRR S1/S2. Tele showing no acute dysrhythmias. Abd - Soft, NT, +BS, GTube secured with site clean and dry Ext - No pedal edema Psych - annoyed and agitated Skin - Warm and dry. small bruising noted left antecubital fossa with nodules. Objective Data Vital Signs Madalyn
--- NOTE | 2022-03-14 15:03 | PM.PNCARD ---
Progress Note: A&P Assessment and Plan (1) Elevated troponin I level: Code(s): R77.8 - Other specified abnormalities of plasma proteins Status: Acute Plan 56-year-old lady with: Appears to have typical picture of takotsubo stress cardiomyopathy. After the airway compromise that prompted this admission she has a moderate troponin elevation and echocardiographic appearance of typical stunning or apical ballooning of her left ventricle. She is comfortable since the airway has been restored and there do not appear to be any other cardiac issues at this time. She does have referral to see structural interventionalist at [facility] for a Watchman device since she has P AFib and there is the desire to not prescribe systemic anticoagulation for the termite control representative. Her smoking pipe maker elsewhere has made this referral. The only recommendation at this time is that she have follow-up scheduled with her established physicians probably within 1-3 months having an echocardiogram done to ensure that the left ventricle has normalized. Kaushal Hill MD [facility] Subjective Date/time seen: Date of service:03/14/22 15:03 Interval history: Follow-up visit in this 56-year-old woman with: Elevated troponin levels following episode of airway compromise with dislodgement of her tracheostomy. No specific cardiac symptoms or history. No complaints this afternoon Exam Const: General: comfortable and no acute distress Other: Lady appearing about her stated age in the ICU with family visiting. Nonverbal since her CVA HENMT: Mouth: Yes moist mucous membranes Eyes: Sclera: sclerae normal Pupils: Equal, round and reactive pupils present Neck: Neck: supple and no JVD Resp: Effort & Inspection: normal respiratory effort Other: Large airway rhonchi are noted Cardio: Rate: regular rate Rhythm: regular rhythm GI: GI Palp: Yes Soft to palpation Auscultation: normal bowel sounds Skin: General skin exam: normal color Neuro: Other: Alert and responsive Objective Data Vital Signs Vital Signs: Vital Signs - 24 hr 03/13/22 15:10 03/13/22 16:00 03/13/22 16:00 Temperature Pulse Rate 85 86 Respiratory Rate 20 Blood Pressure Pulse Oximetry Oxygen Delivery Room Air Oxygen Flow Rate Fraction of Inspired Oxygen 03/13/22 17:20 03/13/22 16:00 03/13/22 18:00 Temperature 36.8 C Pulse Rate 82 81 Respiratory Rate 28 H Blood Pressure 117/77 Pulse Oximetry 96 92 Oxygen Delivery Room Air Oxygen Flow Rate Fraction of Inspired Oxygen 03/13/22 21:47 03/13/22 20:00 03/13/22 22:00 Temperature Pulse Rate 91 80 69 Respiratory Rate Blood Pressure Pulse Oximetry Oxygen Delivery Oxygen Flow Rate Fraction of Inspired Oxygen 03/13/22 20:00 03/13/22 20:00 03/13/22 22:29 Temperature 36.6 C Pulse Rate 78 69 82 Respiratory Rate 23 H 23 H 25 H Blood Pressure 105/64 Pulse Oximetry 96 96 Oxygen Delivery Venturi Mask Oxygen Flow Rate 1 Fraction of Inspired Oxygen 03/13/22 21:10 03/13/22 22:36 03/14/22 00:00 Temperature Pulse Rate 82 79 68 Respiratory Rate 24 H Blood Pressure Pulse Oximetry 94 Oxygen Delivery Venturi Mask Oxygen Flow Rate 6 Fraction of Inspired Oxygen 03/14/22 00:00 03/14/22 00:00 03/14/22 01:53 Temperature 36.3 C L Pulse Rate 70 70 68 Respiratory Rate 20 20 Blood Pressure 109/60 Pulse Oximetry 96 96 Oxygen Delivery Venturi Mask Oxygen Flow Rate 1 Fraction of Inspired Oxygen 03/14/22 03:03 03/14/22 03:10 03/14/22 04:00 Temperature Pulse Rate 83 78 86 Respiratory Rate 16 21 H Blood Pressure Pulse Oximetry Oxygen Delivery Oxygen Flow Rate Fraction of Inspired Oxygen 03/14/22 04:00 03/14/22 06:00 03/14/22 04:00 Temperature 36.6 C Pulse Rate 81 75 75 Respiratory Rate 22 H 22 H Blood Pressure 121/65 Pulse Oximetry 94 94 Oxygen Delivery Venturi Mask Oxyge
--- NOTE | 2022-03-14 15:40 | PC.NURSE ---
This patient, Geovanna Marmolejo, was transferred to [[id number]] on 03/14/22 at 1540. Personal belongings sent with patient. Report given to [Suha REYNOSO]. Appropriate documentation sent with patient.
[2022-03-14] MEDS: QUEtiapine FUMARATE 25 MG TABLET 50 MG FEED TUBE (20:27)
[2022-03-14] MEDS: ALPRAZolam (*CRX) 0.25 MG TABLET FEED TUBE (20:28)
[2022-03-14 23:21] LABS: Appearance Urine Slightly Cloudy (Clear); Bilirubin Urine Negative (Negative); Blood Urine Negative (Negative); Color Urine Yellow (Yellow); Glucose Urine UA Negative (Negative); Ketones Urine Negative (Negative); Leukocyte Esterase Ur Negative LEU/UL (Negative); Nitrate Urine Negative (Negative); Protein Urine Negative (Negative); Specific Grav Ur 1.015 (1.001-1.035); Urobilinogen Urine 0.2 mg/dL (<2.0); pH Urine 8.5 (5.0-9.0)
[2022-03-14 23:29] LABS: Add Urine Microscopic? NO
[2022-03-15] VITALS (19 sets, daily range): BP systolic 107–122; BP diastolic 64–82; PULSE 76–118; RESP 16–22; TEMP 35.9–36.7; O2SAT 92–97
[2022-03-15 00:51] LABS: Glucose Point of Care 161 mg/dl (65-105)
[2022-03-15] MEDS: ALBUTEROL SULFATE NEB 2.5 MG/3 ML INH 5 MG INHALATION ×2 (02:47→19:49)
[2022-03-15] MEDS: IPRATROPIUM BR 0.02% INH SOLN 0.5 MG/2.5 ML VIAL INHALATION ×4 (02:47→19:49)
[2022-03-15] MEDS: LANSOPRAZOLE ORAL SUSP 30 MG/10 ML ORAL.SUSP FEED TUBE (06:09)
[2022-03-15 06:22] LABS: Glucose Point of Care 165 mg/dl (65-105)
[2022-03-15] MEDS: ALBUTEROL SULFATE NEB 2.5 MG/0.5 ML INH 5 MG ×2 (08:28→13:36)
[2022-03-15] MEDS: ENOXAPARIN 40 MG/0.4 ML SYRINGE SUB-Q (10:24)
[2022-03-15] MEDS: INSULIN GLARGINE (*BKC) 100 UNITS/ML 20 UNITS SUB-Q (10:25)
--- NOTE | 2022-03-15 11:22 | PCSTNOTE ---
Communication evaluation completed to teach use of communication board in order to improve communications with hospital staff. ST will follow up.
[2022-03-15] MEDS: CLOPIDOGREL BISULFATE 75 MG TABLET FEED TUBE (11:49)
[2022-03-15] MEDS: EZETIMIBE 10 MG TABLET FEED TUBE (11:50)
[2022-03-15] MEDS: GABAPENTIN 100 MG CAPSULE FEED TUBE ×2 (11:50→20:52)
[2022-03-15] MEDS: METOPROLOL TARTRATE 12.5 MG TABLET FEED TUBE ×2 (11:50→20:52)
[2022-03-15] MEDS: SCOPOLAMINE 1.5 MG PATCH TRANSDERM (11:51)
[2022-03-15 12:01] LABS: Glucose Point of Care 185 mg/dl (65-105)
--- NOTE | 2022-03-15 12:49 | PCSTNOTE ---
ST revisited the patient with RT to attempt voicing using Passy Mitzy Speaking Valve. Patient demonstrated good tolerance evidenced through maintaining oxygen stats. Passy Mitzy Valve present in the room to be inserted when the patient needs to communicate.
--- NOTE | 2022-03-15 13:46 | PM.IMPN ---
Progress Note: A&P Assessment and Plan (1) Pneumonia: Code(s): J18.9 - Pneumonia, unspecified organism Status: Acute Assessment and Plan: Chest x-ray shows bilateral interstitial infiltrates pneumonia verses edema. Suspected pneumonia given increasing, thick secretions and recent trach change under stressful conditions. Blood culture (1of2) have returned positive for gram variable bacilli from aerobic bottle only. Sputum pending. SARS-CoV-2 by PCR was negative. Continue Zosyn. Follow up on final result. (2) Non-STEMI (non-ST elevated myocardial infarction): Code(s): I21.4 - Non-ST elevation (NSTEMI) myocardial infarction Status: Acute Assessment and Plan: Patient denies having chest pain however her troponins increased to 3.0. CXR showing bilateral interstitial infiltrates. EKG showing ST-T wave changes in the inferior leads. Echo showing EF 40-45% with akinesis of the apical part of the LV typical of takotsubo CMP. Elevated Trop possibly related to respiratory distress and hypoxemic episode resulting in takotsubo CMP. No hx of CAD. Cardiology consulted and appreciate their input. She cannot take statin therapy. Losartan causes hives. Continue Plavix, Lopressor and Zetia. Will need repeat Echo in 4-6 months. (3) Takotsubo cardiomyopathy: Code(s): I51.81 - Takotsubo syndrome Status: Acute Assessment and Plan: Please see above (4) Tracheostomy complication: Code(s): J95.00 - Unspecified tracheostomy complication Status: Acute Assessment and Plan: Tracheostomy was dislodged 03/11 in the evening and was replaced by her daughter; patient developed respiratory distress the following morning (the morning of admission). Tracheostomy was exchanged by Dr. Jimenez in the ED. She is stable for discharge from his standpoint. Continue routine tracheostomy care. Humidified air. Pulmonary consult for further management. (5) Type 2 diabetes mellitus: Code(s): E11.9 - Type 2 diabetes mellitus without complications Status: Acute Assessment and Plan: A1c 6.4. The patient's blood glucose was reviewed on 03/15. Glucose remains reasonably well controlled. Continue AccuCheks covering with sliding scale. Hypoglycemia protocol available as needed. Tolerating tube feeding. Continue Lantus. (6) Paroxysmal atrial fibrillation: Code(s): I48.0 - Paroxysmal atrial fibrillation Status: Acute Assessment and Plan: Patient was maintaining sinus rhythm by telemetry which has been stopped. Continue Lopressor. Not on anticoagulation on admission. It appears that she was changed from Eliquis to Plavix sometime in the past for unclear reasons. Continue to monitor on tele. (7) Chronic obstructive pulmonary disease: Code(s): J44.9 - Chronic obstructive pulmonary disease, unspecified Status: Acute Assessment and Plan: Stable. Coarse breath sounds. Continue nebulizer treatments. (8) Cerebrovascular accident: Code(s): I63.9 - Cerebral infarction, unspecified Status: Acute Assessment and Plan: Patient has a history of stroke status post tracheostomy and G-tube. Tube feedings resumed and she is tolerating this well. Continue PT and OT. Subjective Date/time seen: 03/15/22 13:46 Interval history: 56yo female with hx of CVA requiring PEG and Trach, DM and HTN here for tracheostomy dysfunction. New speaking valve given. The patient has a picture board and points to 'angry' and 'I want to go home'. She is coughing up through her trach sputum with suction at bedside. Complains fo left forearm brusing Review of Systems Review of Systems: ROS unobtainable: Yes unobtainable due to medical condition Exam Narrative: AF 96.7 121/82 84 16 95% ra Gen - NARD sitting up in bed HEENT - dried blood at the left nares Neck - midline trach secured with thin yellow-white sputum that is easily suctioned Chest -
--- NOTE | 2022-03-15 13:54 | PM.CNPUL ---
Assessment and Plan Assessment and plan (1) Cerebrovascular accident: Code(s): I63.9 - Cerebral infarction, unspecified Status: Acute (2) History of stroke: Code(s): Z86.73 - Personal history of transient ischemic attack (TIA), and cerebral infarction without residual deficits Status: Acute (3) Tracheostomy complication: Code(s): J95.00 - Unspecified tracheostomy complication Status: Acute Assessment and Plan: 56-year-old female with history of stroke status post tracheostomy and G-tube placement, history of paroxysmal atrial fibrillation presented with respiratory distress and evidence of takotsubo cardiomyopathy. reportedly there was mucus plugging of tracheostomy tube that resulted in dislodging of tracheostomy tube. a new tracheostomy tube was placed by [facility]. Patient did not have evidence of pneumonia on chest x-ray. She continues to have increased amount of bronchial secretions required frequent suctioning. She is currently on antibiotic and her white cell count is back into the normal range. Plan we will repeat chest x-ray in a.m. continue with frequent suctioning, humidified mist, monitor oxygen saturation. Await sputum culture. continue with DVT prophylaxis. (4) Paroxysmal atrial fibrillation: Code(s): I48.0 - Paroxysmal atrial fibrillation Status: Acute (5) Chronic obstructive pulmonary disease: Code(s): J44.9 - Chronic obstructive pulmonary disease, unspecified Status: Acute (6) Tracheostomy malfunction: Code(s): J95.03 - Malfunction of tracheostomy stoma Status: Acute History of Present Illness History of Present Illness Consult date: 03/15/22 Chief complaint: Pneumonia Narrative: this 56-year-old female presented with increased respiratory distress. Patient is aphasic and communication was done through board. She has history of stroke status post tracheostomy and G-tube placement, hypertension, insulin-dependent diabetes mellitus, paroxysmal atrial fibrillation. Reportedly the patient had increased sputum production and presumably cough that resulted in tracheostomy dislodging. Patient's daughter was able to put it back in. Approximately 12 hours later she presented to the emergency room with increased secretions and respiratory distress. In the emergency room tracheostomy was replaced by [facility] Th[facility]. I was asked to see the patient regarding possible underlying respiratory disease. She continues to have increased amount of secretions requiring frequent suctioning. Secretions are thick yellowish. The patient is not on supplemental oxygen. She is on just humidified mist to loosen up secretions. Patient has no fever chills hemoptysis. She has been on antibiotics and her WBC is not elevated. Chest x-ray showed no clear-cut infiltrate. The patient was also evaluated by Cardiology because of elevated troponin. She was found to have takotsubo cardiomyopathy. She is on continuous tube feedings at home she will occasionally wake her lips and mouth. [facility] Past Medical History Medical History (Updated 03/13/22 @ 12:52 by Marcia Hernandez MD) Bipolar disorder Cerebrovascular accident Chronic obstructive pulmonary disease Coronary artery disease Nonobstructing disease, per patient report. Depression with anxiety Gastroesophageal reflux disease History of stroke Hypertension Paroxysmal atrial fibrillation Type 2 diabetes mellitus Surgical History Surgical History (Updated 03/12/22 @ 15:19 by Vielka Moon PA-C) History of percutaneous endoscopic gastrostomy History of tonsillectomy History of tracheostomy History of tubal ligation Family History Family History Father Diabetes mellitus Mother Cancer Breast cancer Sibling Hypertension Acute myocardial infarction Cerebrovascular accident History of blood clots Social Hi
[2022-03-15 15:55] LABS: Glucose Point of Care 158 mg/dl (65-105)
[2022-03-15] MEDS: ACETAMINOPHEN 325 MG TABLET 650 MG PO (20:21)
[2022-03-15] MEDS: ALPRAZolam (*CRX) 0.25 MG TABLET FEED TUBE (20:23)
[2022-03-15] MEDS: QUEtiapine FUMARATE 25 MG TABLET 50 MG FEED TUBE (20:52)
[2022-03-15 21:49] LABS: Glucose Point of Care 178 mg/dl (65-105)
[2022-03-16] VITALS (18 sets, daily range): BP systolic 108–130; BP diastolic 66–85; PULSE 80–110; RESP 18–28; TEMP 36.1–36.7; O2SAT 93–97
[2022-03-16] MEDS: ALBUTEROL SULFATE NEB 2.5 MG/3 ML INH 5 MG INHALATION ×3 (02:23→14:16)
[2022-03-16] MEDS: IPRATROPIUM BR 0.02% INH SOLN 0.5 MG/2.5 ML VIAL INHALATION ×4 (02:23→21:05)
[2022-03-16] MEDS: LANSOPRAZOLE ORAL SUSP 30 MG/10 ML ORAL.SUSP FEED TUBE (06:00)
[2022-03-16 06:21] LABS: Glucose Point of Care 184 mg/dl (65-105)
[2022-03-16] MEDS: GABAPENTIN 100 MG CAPSULE FEED TUBE ×2 (09:47→20:24)
[2022-03-16] MEDS: INSULIN GLARGINE (*BKC) 100 UNITS/ML 20 UNITS SUB-Q (09:48)
[2022-03-16] MEDS: METOPROLOL TARTRATE 12.5 MG TABLET FEED TUBE ×2 (09:52→20:25)
[2022-03-16] MEDS: EZETIMIBE 10 MG TABLET FEED TUBE (10:50)
[2022-03-16] MEDS: CLOPIDOGREL BISULFATE 75 MG TABLET FEED TUBE (10:50)
[2022-03-16] MEDS: ENOXAPARIN 40 MG/0.4 ML SYRINGE SUB-Q (10:50)
[2022-03-16 12:04] LABS: Glucose Point of Care 161 mg/dl (65-105)
--- NOTE | 2022-03-16 12:20 | PCSTNOTE ---
Spoke with the hospitalist who was in agreement to order bedside swallow evaluation and begin dysphagia treatment with the patient. ANGELES Sherwood confirmed she would put the order in. Anticipate bedside swallow evaluation completion 03/17/22.
--- NOTE | 2022-03-16 12:57 | PM.PNPUL ---
Progress Note: A&P Assessment and Plan (1) Tracheostomy complication: Code(s): J95.00 - Unspecified tracheostomy complication Status: Acute Assessment and Plan: ?56-year-old female with history of stroke, status post tracheostomy and G-tube placement, history of paroxysmal atrial fibrillation presented with respiratory distress and evidence of? takotsubo cardiomyopathy. ? reportedly there was? mucus plugging of tracheostomy tube that resulted in dislodging of tracheostomy tube.? a new tracheostomy tube was placed by [facility].? Patient did not have evidence of pneumonia on chest x-ray On admission chest x-ray. New chest x-ray taken today also showed no clear-cut new infiltrate. Sputum culture negative so far. Blood culture; Gram variable bacilli from aerobic bottle only. Patient is on IV antibiotic and her white cell count is back into the normal range.? Plan: continue with frequent suctioning,? humidified mist,? monitor oxygen saturation.? continue with DVT prophylaxis. Await for blood culture report. (2) Chronic obstructive pulmonary disease: Code(s): J44.9 - Chronic obstructive pulmonary disease, unspecified Status: Acute (3) Paroxysmal atrial fibrillation: Code(s): I48.0 - Paroxysmal atrial fibrillation Status: Acute (4) History of stroke: Code(s): Z86.73 - Personal history of transient ischemic attack (TIA), and cerebral infarction without residual deficits Status: Acute (5) Tracheostomy malfunction: Code(s): J95.03 - Malfunction of tracheostomy stoma Status: Acute Subjective Date/time seen: 03/16/22 12:57 No significant change in respiratory status since yesterday. She continues to have increased bronchials secretions. Afebrile. Review of Systems Review of Systems: All system review is negative except as noted in H&P and below. Exam Narrative: ?GENERAL APPEARANCE: Well developed, well nourished, alert and cooperative with trachestomy in place, ? Communicated only via gestures and via board images SKIN: Inspection of the skin reveals no rashes, ulcerations or petechiae. HEENT: Sclerae anicteric and conjunctivae? pink and moist. Extraocular movements were intact and pupils were equal, round, and reactive to light. ? NECK: Supple. There was no thyroid enlargement, and no tenderness, or masses were felt. skin around tracheostomy not erythematous.? No secretions around tracheostomy tube CHEST: Normal AP diameter and normal contour without any kyphoscoliosis. LUNGS: Auscultation of the lungs revealed normal? few rhonchi bilaterally CARDIAC: There was a irregular rate and rhythm without any murmurs. ABDOMEN: Soft and nontender with normal bowel sounds. There was no organomegaly. LYMPH NODES: No lymphadenopathy was appreciated in the neck EXTREMITIES: No cyanosis, clubbing or edema. NEUROLOGIC: Alert and oriented x 3.? moving all extremities. Objective Data Vital Signs Vital Signs: Vital Signs - 24 hr 03/15/22 13:30 03/15/22 13:37 03/15/22 13:45 Temperature 35.9 C L Pulse Rate 100 94 84 Respiratory Rate 20 20 16 Blood Pressure 121/82 Pulse Oximetry 95 Oxygen Delivery Oxygen Flow Rate Fraction of Inspired Oxygen 03/15/22 16:00 03/15/22 20:52 03/15/22 19:55 Temperature Pulse Rate 84 84 118 H Respiratory Rate 22 H Blood Pressure Pulse Oximetry 94 Oxygen Delivery High Flow Therapy with Tr Oxygen Flow Rate 30 Fraction of Inspired Oxygen 21 03/15/22 19:55 03/15/22 22:00 03/15/22 20:00 Temperature 36.7 C Pulse Rate 118 H 83 93 Respiratory Rate 22 H 20 Blood Pressure 107/64 Pulse Oximetry 94 Oxygen Delivery Oxygen Flow Rate Fraction of Inspired Oxygen 03/16/22 00:00 03/15/22 20:00 03/16/22 02:10 Temperature Pulse Rate 81 81 110 H Respiratory Rate 20 22 H Blood Pressure Pulse Oximetry 94 Oxygen Delivery High Flow Therapy with Tr Oxygen Flow Rate 0 Fracti
--- NOTE | 2022-03-16 14:44 | PM.IMPN ---
Progress Note: A&P Assessment and Plan (1) Pneumonia: Code(s): J18.9 - Pneumonia, unspecified organism Status: Acute Assessment and Plan: Chest x-ray shows bilateral interstitial infiltrates pneumonia verses edema. Suspected pneumonia given increasing, thick secretions and recent trach change under stressful conditions. Blood culture (1of2) have returned positive for Acinetobacter from aerobic bottle only. Sputum pending. SARS-CoV-2 by PCR was negative. Suspect source is from the the lung and probably chronically colonized. Currently on Zosyn. Echo noted. Unasyn appears to have excellent bactericidal activity so will adjust treatment. Repeat BCx. Plan for home with IV abx to complete 10 days of treatment. (2) Bacteremia: Code(s): R78.81 - Bacteremia Status: Acute Assessment and Plan: As above. (3) Non-STEMI (non-ST elevated myocardial infarction): Code(s): I21.4 - Non-ST elevation (NSTEMI) myocardial infarction Status: Acute Assessment and Plan: Patient denies having chest pain however her troponins increased to 3.0. CXR showing bilateral interstitial infiltrates. EKG showing ST-T wave changes in the inferior leads. Echo showing EF 40-45% with akinesis of the apical part of the LV typical of takotsubo CMP. Elevated Trop possibly related to respiratory distress and hypoxemic episode resulting in takotsubo CMP. No hx of CAD. Cardiology consulted and appreciate their input. She cannot take statin therapy. Losartan causes hives. Continue Plavix, Lopressor and Zetia. Will need repeat Echo in 4-6 months. (4) Takotsubo cardiomyopathy: Code(s): I51.81 - Takotsubo syndrome Status: Acute Assessment and Plan: Please see above (5) Tracheostomy complication: Code(s): J95.00 - Unspecified tracheostomy complication Status: Acute Assessment and Plan: Tracheostomy was dislodged 6/7 in the evening and was replaced by her daughter; patient developed respiratory distress the following morning (the morning of admission). Tracheostomy was exchanged by Dr. Jimenez in the ED. She is stable for discharge from his standpoint. Continue routine tracheostomy care. Humidified air. Pulmonary consult for further management. (6) Type 2 diabetes mellitus: Code(s): E11.9 - Type 2 diabetes mellitus without complications Status: Acute Assessment and Plan: A1c 6.4. The patient's blood glucose was reviewed on 03/16. Glucose remains reasonably well controlled. Continue AccuCheks covering with sliding scale. Hypoglycemia protocol available as needed. Tolerating tube feeding. Continue Lantus. (7) Paroxysmal atrial fibrillation: Code(s): I48.0 - Paroxysmal atrial fibrillation Status: Acute Assessment and Plan: Patient was maintaining sinus rhythm by telemetry. Continue Lopressor. Not on anticoagulation on admission. It appears that she was changed from Eliquis to Plavix sometime in the past for unclear reasons. Tele noted - will check electrolytes. Continue to monitor on tele. (8) Chronic obstructive pulmonary disease: Code(s): J44.9 - Chronic obstructive pulmonary disease, unspecified Status: Acute Assessment and Plan: Stable. Coarse breath sounds but improved. Continue nebulizer treatments. Continue to humidify air (9) Cerebrovascular accident: Code(s): I63.9 - Cerebral infarction, unspecified Status: Acute Assessment and Plan: Patient has a history of stroke status post tracheostomy and G-tube. Tube feedings resumed and she is tolerating this well. Continue PT and OT. Plan DVT Prophylaxis: Lovenox Code status: Full Subjective Date/time seen: 03/16/22 14:44 Interval history: 56yo female with hx of CVA requiring PEG and Trach, DM and HTN here for tracheostomy dysfunction. Patient continues to have thin copious amounts of secretions. Patient slept last night. s
[2022-03-16] MEDS: AMPICILLIN SULB 3 GM/NS 100 ML 3 GM/100 ML VIAL IVPB ×2 (17:41→23:26)
[2022-03-16] MEDS: SALINE 0.65% NAS SOLN 44 ML BTL 1 SPRAY NASAL (18:13)
[2022-03-16 18:20] LABS: Glucose Point of Care 128 mg/dl (65-105)
[2022-03-16] MEDS: QUEtiapine FUMARATE 25 MG TABLET 50 MG FEED TUBE (20:24)
[2022-03-16] MEDS: ACETAMINOPHEN 325 MG TABLET 650 MG PO (20:25)
[2022-03-16] MEDS: ALPRAZolam (*CRX) 0.25 MG TABLET FEED TUBE (20:25)
[2022-03-16] MEDS: ALBUTEROL SULFATE NEB 2.5 MG/3 ML INH INHALATION (21:05)
[2022-03-16 22:45] LABS: Glucose Point of Care 121 mg/dl (65-105)
[2022-03-17] VITALS (19 sets, daily range): BP systolic 129–133; BP diastolic 73–74; PULSE 72–99; RESP 18–20; TEMP 36.6–36.7; O2SAT 93–96
[2022-03-17] MEDS: AMPICILLIN SULB 3 GM/NS 100 ML 3 GM/100 ML VIAL IVPB ×4 (06:02→23:46)
[2022-03-17] MEDS: LANSOPRAZOLE ORAL SUSP 30 MG/10 ML ORAL.SUSP FEED TUBE (06:02)
[2022-03-17 07:58] LABS: Pneumococcal Antigen Urine Not Detected (Not Detected)
[2022-03-17] MEDS: IPRATROPIUM BR 0.02% INH SOLN 0.5 MG/2.5 ML VIAL INHALATION ×3 (08:28→20:57)
[2022-03-17] MEDS: ALBUTEROL SULFATE NEB 2.5 MG/3 ML INH INHALATION ×3 (08:28→20:57)
--- NOTE | 2022-03-17 09:08 | PM.DS ---
DS: Admitting Diagnosis Discharge Date 03/17/22 Admitting Diagnosis Tracheostomy dysfunction DS: Discharge Diagnosis Discharge Diagnosis (1) Pneumonia: Code(s): J18.9 - Pneumonia, unspecified organism Status: Acute (2) Bacteremia: Code(s): R78.81 - Bacteremia Status: Acute (3) Non-STEMI (non-ST elevated myocardial infarction): Code(s): I21.4 - Non-ST elevation (NSTEMI) myocardial infarction Status: Acute (4) Takotsubo cardiomyopathy: Code(s): I51.81 - Takotsubo syndrome Status: Acute (5) Tracheostomy complication: Code(s): J95.00 - Unspecified tracheostomy complication Status: Acute (6) Type 2 diabetes mellitus: Code(s): E11.9 - Type 2 diabetes mellitus without complications Status: Acute (7) Paroxysmal atrial fibrillation: Code(s): I48.0 - Paroxysmal atrial fibrillation Status: Acute (8) Chronic obstructive pulmonary disease: Code(s): J44.9 - Chronic obstructive pulmonary disease, unspecified Status: Acute (9) Cerebrovascular accident: Code(s): I63.9 - Cerebral infarction, unspecified Status: Acute DS: Summary Hospital Course Reason for hospitalization: 56yo female with hx of CVA requiring PEG and Trach, DM and HTN here for tracheostomy dysfunction. Please see H&P for details. Hospital Course: Tracheostomy was dislodged 03/11 in the evening and was replaced by her daughter; patient developed respiratory distress the following morning (the morning of admission). Tracheostomy was exchanged by Dr. Jimenez in the ED. We continued routine tracheostomy care and added humidified air. Pulmonary consulted and they followed along. Chest x-ray on admission showed bilateral interstitial infiltrates pneumonia verses edema. Suspected pneumonia given increasing, thick secretions and recent trach change under stressful conditions. Blood cultures (1of2) have returned positive for Acinetobacter from aerobic bottle only. Patient was refusing labs and repeat BCx. Sputum had growth of normal oropharyngeal crystal. SARS-CoV-2 by PCR was negative. Suspect source of bacteremia is from the the lung and maybe chronically colonized with transient bacteremia related to the traumatic replacement of trach. She was treated with Zosyn. Echo showing no evidence of vegetations. Discussed with Pulmonary who recommended Levaquin orally at discharge. Patient denies having chest pain however her troponins on admission increased to 3.0. EKG showing ST-T wave changes in the inferior leads. Echo showing EF 40-45% with akinesis of the apical part of the LV typical of takotsubo CMP. Elevated Trop related to respiratory distress and hypoxemic episode resulting in takotsubo CMP. No hx of CAD. Repeat CXR showing bibasilar airspace disease. Cardiology was consulted and appreciate their input. She cannot take statin therapy. Losartan causes hives. We continued Plavix, Lopressor and Zetia. A1c 6.4. The patient's blood glucose was monitored with AccuCheks covering with sliding scale. Hypoglycemia protocol was available as needed. She tolerated her tube feedings. We continued Lantus. Patient was maintaining sinus rhythm by telemetry. We continued Lopressor. Not on anticoagulation on admission. It appears that she was changed from Eliquis to Plavix sometime in the past for unclear reasons. Patient has a history of stroke status post tracheostomy and G-tube. She worked well with PT and OT. She overall did well and was able to be discharged home on 03/17/22 Status at Discharge Cognitive/behavioral status at discharge: Stable Time Spent with Patient Time attestation: Total time spent providing and/or coordinating discharge services: 35 minutes Time spent: Greater than 30 minutes Exam Narrative: AF 97.9 129/74 86 20 94% trach collar Gen - NARD lying semi-recumbent in bed Neck - midline trach secured with minimal sputum production when she coughs Chest -
[2022-03-17] MEDS: METOPROLOL TARTRATE 12.5 MG TABLET FEED TUBE ×2 (09:16→20:17)
[2022-03-17] MEDS: GABAPENTIN 100 MG CAPSULE FEED TUBE ×2 (09:16→20:17)
[2022-03-17] MEDS: EZETIMIBE 10 MG TABLET FEED TUBE (09:18)
[2022-03-17] MEDS: INSULIN GLARGINE (*BKC) 100 UNITS/ML 20 UNITS SUB-Q (09:18)
[2022-03-17] MEDS: ENOXAPARIN 40 MG/0.4 ML SYRINGE SUB-Q (09:18)
[2022-03-17] MEDS: CLOPIDOGREL BISULFATE 75 MG TABLET FEED TUBE (09:18)
[2022-03-17] MEDS: ACETAMINOPHEN 325 MG TABLET 650 MG PO (09:32)
[2022-03-17] MEDS: LIDOCAINE HCL 1% PF INJ 5 ML VIAL INFILTRATE (11:10)
[2022-03-17 11:53] LABS: Glucose Point of Care 153 mg/dl (65-105)
--- NOTE | 2022-03-17 14:48 | PM.PNPUL ---
Progress Note: A&P Assessment and Plan (1) Tracheostomy complication: Code(s): J95.00 - Unspecified tracheostomy complication Status: Acute Assessment and Plan: ?56-year-old female with history of stroke, status post tracheostomy and G-tube placement, history of paroxysmal atrial fibrillation presented with respiratory distress and evidence of? takotsubo cardiomyopathy. ? reportedly there was? mucus plugging of tracheostomy tube that resulted in dislodging of tracheostomy tube.? a new tracheostomy tube was placed by [facility].? Patient did not have evidence of pneumonia on chest x-ray. Sputum culture has been negative but blood culture grew Acinetobacter. patient has treated with antibiotics and the white cell count has been back into the normal range. Last chest x-ray showed no new infiltrates. Plan: Patient is being discharged to complete treatment for Acinetobacter blood infection with IV Unasyn at home. Acinetobacter blood infection probably resulted from bronchial airway infection. Dr. Redd is arranging home IV antibiotic treatment with Unasyn. no attempts were made to wean her off tracheostomy tube as patient was evaluated at another facility following stroke with dysphagia and aspiration pneumonia and deemed not a candidate to undergo tracheostomy weaning because of unresolved dysphagia with risk for risk aspiration. (2) Chronic obstructive pulmonary disease: Code(s): J44.9 - Chronic obstructive pulmonary disease, unspecified Status: Acute (3) Paroxysmal atrial fibrillation: Code(s): I48.0 - Paroxysmal atrial fibrillation Status: Acute (4) History of stroke: Code(s): Z86.73 - Personal history of transient ischemic attack (TIA), and cerebral infarction without residual deficits Status: Acute (5) Tracheostomy malfunction: Code(s): J95.03 - Malfunction of tracheostomy stoma Status: Acute Subjective Date/time seen: 03/17/22 14:48 Respiratory status unchanged over the last 24 hours. No new respiratory complaints. Bronchial secretions have decreased over the last 2 days. Patient is afebrile she remains on room air Review of Systems Review of Systems: all system review is unremarkable except as noted in H&P and below Exam Narrative: ?GENERAL APPEARANCE: Well developed, well nourished, alert and cooperative with tracheostomy in place, ? communicated only via gestures and via board images SKIN: Inspection of the skin reveals no rashes, ulcerations or petechiae. HEENT: Sclerae anicteric and conjunctivae? pink and moist. Extraocular movements were intact and pupils were equal, round, and reactive to light. ? NECK: Supple. There was no thyroid enlargement, and no tenderness, or masses were felt. skin around tracheostomy not erythematous.? No secretions around tracheostomy tube CHEST: Normal AP diameter and normal contour without any kyphoscoliosis. LUNGS: Auscultation of the lungs revealed? few rhonchi bilaterally CARDIAC: There was a irregular rate and rhythm without any murmurs. ABDOMEN: Soft and nontender with normal bowel sounds. LYMPH NODES: No lymphadenopathy was appreciated in the neck EXTREMITIES: No cyanosis, clubbing or edema. NEUROLOGIC: Alert, with aphasia? moving all extremities. Objective Data Vital Signs Vital Signs: Vital Signs - 24 hr 03/16/22 15:43 03/16/22 16:00 03/16/22 20:00 Temperature 36.7 C 36.1 C L Pulse Rate 86 90 92 Respiratory Rate 18 20 Blood Pressure 115/71 130/85 Pulse Oximetry 94 97 Oxygen Delivery Oxygen Flow Rate Fraction of Inspired Oxygen 03/16/22 20:25 03/16/22 21:06 03/16/22 21:13 Temperature Pulse Rate 92 83 83 Respiratory Rate 20 20 Blood Pressure Pulse Oximetry 93 Oxygen Delivery High Flow Therapy with Tr Oxygen Flow Rate 30 Fraction of Inspired Oxygen 21 03/16/22 21:14 03/16/22 20:00 03/17/22 00:00 Temperature Pulse Rate 88 94 87 Respiratory Rate 2
--- NOTE | 2022-03-17 14:58 | PM.IMPN ---
Progress Note: A&P Assessment and Plan (1) Pneumonia: Code(s): J18.9 - Pneumonia, unspecified organism Status: Acute (2) Bacteremia: Code(s): R78.81 - Bacteremia Status: Acute (3) Non-STEMI (non-ST elevated myocardial infarction): Code(s): I21.4 - Non-ST elevation (NSTEMI) myocardial infarction Status: Acute (4) Takotsubo cardiomyopathy: Code(s): I51.81 - Takotsubo syndrome Status: Acute (5) Tracheostomy complication: Code(s): J95.00 - Unspecified tracheostomy complication Status: Acute (6) Type 2 diabetes mellitus: Code(s): E11.9 - Type 2 diabetes mellitus without complications Status: Acute (7) Paroxysmal atrial fibrillation: Code(s): I48.0 - Paroxysmal atrial fibrillation Status: Acute (8) Chronic obstructive pulmonary disease: Code(s): J44.9 - Chronic obstructive pulmonary disease, unspecified Status: Acute (9) Cerebrovascular accident: Code(s): I63.9 - Cerebral infarction, unspecified Status: Acute Plan Tracheostomy was dislodged 03/11 in the evening and was replaced by her daughter; patient developed respiratory distress the following morning (the morning of admission). Tracheostomy was exchanged by Dr. Jimenez in the ED. We continued routine tracheostomy care and added humidified air. Pulmonary consulted and they followed along. Patient denies having chest pain however her troponins on admission increased to 3.0.??EKG showing ST-T wave changes in the inferior leads. Echo showing EF 40-45% with akinesis of the apical part of the LV typical of takotsubo CMP. Elevated Trop?related to respiratory distress and hypoxemic episode resulting in?takotsubo?CMP. No hx of CAD. Repeat CXR showing bibasilar airspace disease. Cardiology was consulted and appreciate their input. She cannot take statin therapy. Losartan causes hives. We continued Plavix, Lopressor and Zetia. A1c 6.4. The patient's blood glucose was monitored with AccuCheks covering with sliding scale.? Hypoglycemia protocol was available as needed. She tolerated her tube feedings. We continued Lantus. Patient was maintaining sinus rhythm by telemetry. We continued Lopressor.? Not on anticoagulation on admission.? It appears that she was changed from Eliquis to Plavix sometime in the past for unclear reasons. Patient has a history of stroke status post tracheostomy and G-tube. She worked well with PT and OT. Chest x-ray on admission showed bilateral interstitial infiltrates pneumonia verses edema. Suspected pneumonia given increasing, thick secretions and recent trach change under stressful conditions. Blood cultures (1of2) have returned positive for Acinetobacter from aerobic bottle only. Patient was refusing labs and repeat BCx. Sputum had?growth of normal oropharyngeal crystal.?SARS-CoV-2 by PCR was negative. Suspect source of bacteremia is from the the lung and maybe chronically colonized with transient bacteremia related to the traumatic replacement of trach. She was treated with Zosyn. Echo showing no evidence of vegetations. Literature review showing Unasyn (Sulbactam) is a better choice so abx changed to 3gm Q6H. Discussed with Pulmonary and PharD ID with plans to treat with Unasyn as outpatient. PICC line placed. Plan for patient to be on a continuous infusion of the Unasyn. She is current with [facility] but they will not be able to provide the IV abx until 03/19/22 so discharge was held. Subjective Date/time seen: 03/17/22 14:58 Interval history: 56yo female with hx of CVA requiring PEG and Trach, DM and HTN here for tracheostomy dysfunction. She feels better. She is ready for discharge. Exam Narrative: AF 97.9 129/74 86 20 94% trach collar Gen - NARD lying semi-recumbent in bed Neck - midline trach secured with minimal sputum production when she coughs Chest - bilateral coarse breath sounds CV - RRR S1/S2. Tele showing PVcs Abd - Soft, NT, +BS, GTube s
[2022-03-17] MEDS: CENTRAL LINE FLUSH 10 ML IV PUSH ×2 (15:15→21:30)
[2022-03-17] MEDS: SALINE 0.65% NAS SOLN 44 ML BTL 1 SPRAY NASAL (18:24)
[2022-03-17 18:30] LABS: Glucose Point of Care 120 mg/dl (65-105)
[2022-03-17] MEDS: QUEtiapine FUMARATE 25 MG TABLET 50 MG FEED TUBE (20:17)
[2022-03-17] MEDS: MICONAZOLE NITRATE 2% CREAM 30 GM TUBE 1 APPLIC TOPICAL (21:30)
[2022-03-17 23:16] LABS: Legionella pneumophila Ag Ur Not Detected (Not Detected)
[2022-03-18] VITALS (11 sets, daily range): BP systolic 130–143; BP diastolic 69–75; PULSE 82–110; RESP 17–24; TEMP 36.1–36.7; O2SAT 94–99
[2022-03-18] MEDS: AMPICILLIN SULB 3 GM/NS 100 ML 3 GM/100 ML VIAL IVPB ×3 (05:27→18:12)
[2022-03-18] MEDS: CENTRAL LINE FLUSH 10 ML IV PUSH ×3 (05:33→21:10)
[2022-03-18] MEDS: LANSOPRAZOLE ORAL SUSP 30 MG/10 ML ORAL.SUSP FEED TUBE (05:34)
[2022-03-18 06:02] LABS: Glucose Point of Care 106 mg/dl (65-105)
[2022-03-18 06:02] LABS: Glucose Point of Care 100 mg/dl (65-105)
[2022-03-18 06:50] LABS: Basophils Absolute Auto 0.1 K/mm3 (0.0-0.1); Basophils Percent Auto 0.8 % (0.2-1.2); Eosinophils Absolute Auto 0.8 K/mm3 (0-0.3); Eosinophils Percent Auto 8.5 % (0-4.4); Hematocrit 32.7 % (37.0-47.0); Immature Granulocyte Absolute 0.04 K/mm3 (0.00-0.031); Immature Granulocyte Percent A 0.4 % (0-0.5); Lymphocytes Absolute Auto 2.43 K/mm3 (0.9-3.2); Mean Corpuscular HGB Conc 30.6 g/dl (32-36); Mean Corpuscular Hemoglobin 27.3 pg (26-34); Mean Corpuscular Volume 89.3 fl (80-100); Mean Platelet Volume 11.6 fl (7.4-10.4); Monocytes Absolute Auto 0.8 K/mm3 (0.1-0.6); Monocytes Percent Auto 9.2 % (2.6-8.5); Neutrophils Absolute Auto 4.9 K/mm3 (1.3-6.7); Neutrophils Percent Auto 54.1 % (45.5-73.1); Platelet Count Result 325 k/mm3 (150-375); Red Blood Count 3.66 M/mm3 (4.2-5.4); Red Cell Distribution Width 18.1 % (11.5-14.5)
[2022-03-18 07:12] LABS: Glucose Point of Care 139 mg/dl (65-105)
[2022-03-18 07:15] LABS: Alanine Aminotransferase 19 U/L (6-35); Albumin Level 3.5 g/dL (3.5-5.1); Alkaline Phosphatase 62 U/L (38-126); Anion Gap 5 mmol/L (8-16); Aspartate Amino Transferase 32 U/L (14-36); Bilirubin,Total 0.5 mg/dL (0.2-1.3); Blood Urea Nitrogen 12 mg/dL (7-17); Calcium 8.4 mg/dL (8.4-10.2); Carbon Dioxide 25 mmol/L (22-30); Chloride 115 mmol/L (98-107); Estimated CRCL calculation 83 ml/min; Estimated Glomerular Filt Rate > 60; Glucose 143 mg/dL (65-110); Magnesium 2.1 mg/dL (1.6-2.3); Potassium 4.8 mmol/L (3.4-5.0); Sodium 145 mmol/L (137-145)
[2022-03-18] MEDS: ALBUTEROL SULFATE NEB 2.5 MG/3 ML INH INHALATION ×3 (07:44→20:34)
[2022-03-18] MEDS: IPRATROPIUM BR 0.02% INH SOLN 0.5 MG/2.5 ML VIAL INHALATION ×3 (07:44→20:35)
[2022-03-18] MEDS: METOPROLOL TARTRATE 12.5 MG TABLET FEED TUBE ×2 (08:15→21:09)
[2022-03-18] MEDS: CLOPIDOGREL BISULFATE 75 MG TABLET FEED TUBE (08:15)
[2022-03-18] MEDS: MICONAZOLE NITRATE 2% CREAM 30 GM TUBE 1 APPLIC TOPICAL ×2 (08:15→21:14)
[2022-03-18] MEDS: EZETIMIBE 10 MG TABLET FEED TUBE (08:15)
[2022-03-18] MEDS: GABAPENTIN 100 MG CAPSULE FEED TUBE ×2 (08:15→21:10)
[2022-03-18] MEDS: ENOXAPARIN 40 MG/0.4 ML SYRINGE SUB-Q (08:15)
[2022-03-18] MEDS: SCOPOLAMINE 1.5 MG PATCH TRANSDERM (08:16)
[2022-03-18] MEDS: INSULIN GLARGINE (*BKC) 100 UNITS/ML 20 UNITS SUB-Q (08:17)
--- NOTE | 2022-03-18 08:30 | PC.NURSE ---
Pt G tube clogged during nightshift a couple of hours ago per report. Attempt made this morning to clear tube. Tube burst in center with moderate pressure. Call out to provider to inform.
--- NOTE | 2022-03-18 10:49 | PM.PNPUL ---
Progress Note: A&P Assessment and Plan (1) Tracheostomy complication: Code(s): J95.00 - Unspecified tracheostomy complication Status: Acute Assessment and Plan: ?56-year-old female with history of stroke, status post tracheostomy and G-tube placement, history of paroxysmal atrial fibrillation presented with respiratory distress and evidence of? takotsubo cardiomyopathy. ? reportedly there was? mucus plugging of tracheostomy tube that resulted in dislodging of tracheostomy tube.? a new tracheostomy tube was placed by [facility].? Patient did not have evidence of pneumonia on chest x-ray. Sputum culture has been negative but blood culture grew Acinetobacter. patient has treated with antibiotics and the white cell count has been back into the normal range. Last chest x-ray showed no new infiltrates. Plan: Patient is being discharged to complete treatment for Acinetobacter blood infection with IV Unasyn at home. Acinetobacter blood infection probably resulted from bronchial airway infection. Dr. Redd is arranging home IV antibiotic treatment with Unasyn. no attempts were made to wean her off tracheostomy tube as patient was evaluated at another [facility] following stroke with dysphagia and aspiration pneumonia and deemed not a candidate to undergo tracheostomy weaning because of unresolved dysphagia with risk for risk aspiration. Will sign off. Please call with any questions. (2) Chronic obstructive pulmonary disease: Code(s): J44.9 - Chronic obstructive pulmonary disease, unspecified Status: Acute (3) Paroxysmal atrial fibrillation: Code(s): I48.0 - Paroxysmal atrial fibrillation Status: Acute (4) History of stroke: Code(s): Z86.73 - Personal history of transient ischemic attack (TIA), and cerebral infarction without residual deficits Status: Acute (5) Tracheostomy malfunction: Code(s): J95.03 - Malfunction of tracheostomy stoma Status: Acute Subjective Date/time seen: 03/18/22 10:49 Patient continues to have increased bronchial secretions but less than before. bronchial secretions are now clear. According to patient's daughter she has been a patient at [facility] where she has of follow-ups with pulmonary, ear nose throat, neurology and GI Services regarding a previous stroke, dysphagia, tracheostomy. Review of Systems Review of Systems: all system review is unremarkable except as noted in H&P and below Exam Narrative: ?GENERAL APPEARANCE: Well developed, well nourished, alert and cooperative with trachestomy in place, ? Communicated only via gestures and via board images SKIN: Inspection of the skin reveals no rashes, ulcerations or petechiae. HEENT: Sclerae anicteric and conjunctivae? pink and moist. Extraocular movements were intact and pupils were equal, round, and reactive to light. ? NECK: Supple. There was no thyroid enlargement, and no tenderness, or masses were felt. skin around tracheostomy not erythematous.? No secretions around tracheostomy tube CHEST: Normal AP diameter and normal contour without any kyphoscoliosis. LUNGS: Auscultation of the lungs revealed? few rhonchi bilaterally CARDIAC: There was a irregular rate and rhythm without any murmurs. ABDOMEN: Soft and nontender with normal bowel sounds. There was no organomegaly. LYMPH NODES: No lymphadenopathy was appreciated in the neck EXTREMITIES: No cyanosis, clubbing or edema. NEUROLOGIC: Alert and oriented x 3.? moving all extremities. Objective Data Vital Signs Vital Signs: Vital Signs - 24 hr 03/17/22 13:41 03/17/22 14:30 03/17/22 14:51 Temperature 36.7 C Pulse Rate 96 75 80 Respiratory Rate 18 20 20 Blood Pressure 133/73 Pulse Oximetry 96 Oxygen Delivery Oxygen Flow Rate Fraction of Inspired Oxygen 03/17/22 12:00 03/17/22 16:00 03/17/22 20:17 Temperature Pulse Rate 85 97 83 Respiratory Rate Blood Pressure Pulse Oximetry
--- NOTE | 2022-03-18 11:37 | PCPTNOTE ---
Patient refused treatment this session. Patient seemed agitated this A.M. and reported no to PT, even with family encouragement.
[2022-03-18 12:08] LABS: Glucose Point of Care 120 mg/dl (65-105)
--- NOTE | 2022-03-18 13:59 | PCNFU ---
Nutrition Follow-Up Complete: Swallowing Difficulties as related to CVA as evidenced by PEG tube feedings. Goal:Meet estimated nutritional needs. Pt was meeting goal via tube feed. Tube feeding currently off due to clogged tube. To restart once tube is replaced. Pt current nutrition is Tube feeding of glucerna 1.2 @ 50ml/hr which is her goal rate. Nutrition recommendation: Restart Tube feed at goal rate once tube is replaced. Last recorded weight is 62 kg - stable at this time. Bowel Motility: + BM 03/17 Labs Reviewed: Hb.0,HCT:32.7, Cre:0.5, Glu:139 Meds Noted: Tylenol, Albuterol, Plavix, Lovenox, Zetia, Gabapentin, Atrovent Neb, Lansoprazole, Lopressor, Zosyn Skin: WNL Additional Notes: Pt is receiving tube feedings of Glucerna 1.2 at the rate of 50mL/hr over 22 hours per PEG tube which is her goal rate. On hold due to clogged tube but will restart once GI replaces tube. Goal rate will provide 1320kcal, 66g of protein, and 886mL of water, meeting 100% of estimated kcal and protein needs. Pt was tolerating tube feeding. Pt is receiving 30mL free water flushes every Q4 hours. Agree with diet orders at this time. Daughter asking about follow up nutrition care at home. Notified pet care attendant and stated all services are through [facility], she will notify daughter. Will monitor tube feed, wt, and labs and follow up every Thursday and Thursday.
--- NOTE | 2022-03-18 14:40 | PCSTNOTE ---
Therapist attempted to see patient who was angry at daughter who left the room and expressed frustration at several items, generally unintelligible and did not use communication board or pen/paper to communicate; just mouthed words without opening jaw or moving articulators. Session cancelled.
--- NOTE | 2022-03-18 14:45 | WPDGICN ---
Assessment and Plan Assessment and plan (1) PEG (percutaneous endoscopic gastrostomy) status: Code(s): Z93.1 - Gastrostomy status Status: Acute Assessment and Plan: patient seen today for broken PEG tube that was broken at the time of dislodging debris from within. Apparently this been in place for about a year. Upon investigation this is truly a percutaneous endoscopic jejunostomy. This tube will need to be withdrawn and removed. However at our institution we do not have replacement J tubes. With the new PEG tube tube feedings will be introduced into the patient's stomach. Should she regurgitate this may cause difficulties. Given the fact she has a tracheostomy. Her lungs are likely protected. However if this occurs frequently than replacements with a PEG J type jejunostomy tube may be required. Most likely this would best be accomplished at the institution where it was originally placed I believe this is [place] or [facility]. (2) Cerebrovascular accident: Code(s): I63.9 - Cerebral infarction, unspecified Status: Acute (3) History of stroke: Code(s): Z86.73 - Personal history of transient ischemic attack (TIA), and cerebral infarction without residual deficits Status: Acute (4) Chronic obstructive pulmonary disease: Code(s): J44.9 - Chronic obstructive pulmonary disease, unspecified Status: Acute (5) History of tracheostomy: Code(s): Z98.890 - Other specified postprocedural states Status: Acute GI Consult Note Consult date/time: 03/18/22 14:45 Reason for consult: Peg malfunction HPI: Geovanna Marmolejo is a 56 year old female I am asked to see because of broken PEG tube. Patient has a history of a CVA and had a G tube placed approximately a year ago at a different institution. Patient was admitted to our hospital 03/11/2022 when her tracheostomy tube was dislodged. She currently is nonverbal unable to add any additional history. She requires G-tube for feeding. Tracheostomy apparently was exchanged in the emergency department. She was noted to have mild elevated troponins on admission but no evidence for a myocardial infarction. She denies chest pain. She is close to being discharged however her G-tube was clogged in last evening became broken in an attempt to to clear the G-tube. Patient has a history of atrial fibrillation apparently is in anticoagulation currently Plavix. Family history not available. [facility] Past Medical History Medical History (Updated 03/16/22 @ 16:04 by Froylan Redd MD) Bipolar disorder Cerebrovascular accident Chronic obstructive pulmonary disease Coronary artery disease Nonobstructing disease, per patient report. Depression with anxiety Gastroesophageal reflux disease History of stroke Hypertension Paroxysmal atrial fibrillation Type 2 diabetes mellitus Surgical History Surgical History (Updated 03/18/22 @ 14:49 by Yunior Leon MD) History of percutaneous endoscopic gastrostomy History of tonsillectomy History of tracheostomy History of tubal ligation Family History Family History Father Diabetes mellitus Mother Cancer Breast cancer Sibling Hypertension Acute myocardial infarction Cerebrovascular accident History of blood clots Social History Social History (Updated 03/12/22 @ 20:40 by Vielka Moon PA-C) Social History: Surrogate decision maker: Catina Marmolejo, daughter. Code status: Do not resuscitate. Smoking packs per day: 2 Smoking cigarettes per day: 40.0 Years smoked: 40 Smoking pack-years: 80.00 Smoking status: Former smoker Tobacco type: cigarettes Additional smoking assessment comments: Quit in May 2021 following stroke. Spiritual care concerns: No Meds Home Medications and Allergies Home Medications Medication Instructions Recorded Confirmed Type hydrochlorothiazide 25 mg
--- NOTE | 2022-03-18 14:53 | P.OPB_ITS ---
Procedure Note - Brief Procedure Note - Brief Date of procedure: 03/18/22 Pre-op diagnosis: Pneumonia G-tube malfunction. Procedure performed: Removal of PEG J-tube. Replacement with PE G-tube. Description of procedure: Old mal- function and damaged PEJ tube is removed in the following fashion. The balloon is deflated and air as withdrawn from the balloon. Subsequently the existing PEG J-tube is withdrawn including portion that was in the jejunum. Subsequent to this patient had a new 20 [place] replacement G-tube introduced through the gastric cutaneous orifice. The internal balloon is inflated with 7cc of water. Patient tolerated the procedure well. Plan is for contrast study through the new G-tube to document that it is in good position. Surgeon: Yunior Leon MD Estimated blood loss (mL): 0 Packing: No Complications: No immediate complications Findings: The G-tube removed from the stomach actually is a jejunostomy tube. Replaced with a PEG tube that distributed some nutrition into the body of the stomach. S hould patient have recurrent vomiting then replacement of a J-tube at an institution with this possible may need to be considered in the future. However given her current circumstance this PEG tube likely is to be sufficient.
--- NOTE | 2022-03-18 15:15 | PM.IMPN ---
Progress Note: A&P Assessment and Plan (1) Pneumonia: Code(s): J18.9 - Pneumonia, unspecified organism Status: Acute (2) Bacteremia: Code(s): R78.81 - Bacteremia Status: Acute (3) Non-STEMI (non-ST elevated myocardial infarction): Code(s): I21.4 - Non-ST elevation (NSTEMI) myocardial infarction Status: Acute (4) Takotsubo cardiomyopathy: Code(s): I51.81 - Takotsubo syndrome Status: Acute (5) Tracheostomy complication: Code(s): J95.00 - Unspecified tracheostomy complication Status: Acute (6) Type 2 diabetes mellitus: Code(s): E11.9 - Type 2 diabetes mellitus without complications Status: Acute (7) Paroxysmal atrial fibrillation: Code(s): I48.0 - Paroxysmal atrial fibrillation Status: Acute (8) Chronic obstructive pulmonary disease: Code(s): J44.9 - Chronic obstructive pulmonary disease, unspecified Status: Acute (9) Cerebrovascular accident: Code(s): I63.9 - Cerebral infarction, unspecified Status: Acute Plan Tracheostomy was dislodged 03/11 in the evening and was replaced by her daughter; patient developed respiratory distress the following morning (the morning of admission). Tracheostomy was exchanged by Dr. Jimenez in the ED. We continued routine tracheostomy care and added humidified air. Pulmonary consulted and they followed along. Patient denies having chest pain however her troponins on admission increased to 3.0.??EKG showing ST-T wave changes in the inferior leads. Echo showing EF 40-45% with akinesis of the apical part of the LV typical of takotsubo CMP. Elevated Trop?related to respiratory distress and hypoxemic episode resulting in?takotsubo?CMP. No hx of CAD. Repeat CXR showing bibasilar airspace disease. Cardiology was consulted and appreciate their input. She cannot take statin therapy. Losartan causes hives. We continued Plavix, Lopressor and Zetia. A1c 6.4. The patient's blood glucose was monitored with AccuCheks covering with sliding scale.? Hypoglycemia protocol was available as needed. She tolerated her tube feedings. We continued Lantus. Patient was maintaining sinus rhythm by telemetry. We continued Lopressor.? Not on anticoagulation on admission.? It appears that she was changed from Eliquis to Plavix sometime in the past for unclear reasons. Patient has a history of stroke status post tracheostomy and G-tube. She worked well with PT and OT. Chest x-ray on admission showed bilateral interstitial infiltrates pneumonia verses edema. Suspected pneumonia given increasing, thick secretions and recent trach change under stressful conditions. Blood cultures (1of2) have returned positive for Acinetobacter from aerobic bottle only. Patient was refusing labs and repeat BCx. Sputum had?growth of normal oropharyngeal crystal.?SARS-CoV-2 by PCR was negative. Suspect source of bacteremia is from the the lung and maybe chronically colonized with transient bacteremia related to the traumatic replacement of trach. She was treated with Zosyn. Echo showing no evidence of vegetations. Literature review showing Unasyn (Sulbactam) is a better choice so abx changed to Unasyn 3gm Q6H. Discussed with Pulmonary and PharD ID with plans to treat with Unasyn as outpatient for a total of 2 weeks ov IV abx. PICC line was placed. Plan for patient to be on a continuous infusion of the Unasyn. She is current with [facility] but they will not be able to provide the IV abx until 03/19/22 so discharge was held. Plan discharge tomorrow. Today, patient's PEG tube cracked and was discovered that she has a J-Tube. A G-Tube was replaced. Spoke with the daughter. The reason she has the J-Tube was because the patient was vomiting frequently. Will resume tube feedings when okay with GI at lower rate and watch residuals. Consider adding Reglan if needed. Subjective Date/time seen: 03/18/22 15:15 Interval history: 56yo female with hx of CVA requiring PEG
--- NOTE | 2022-03-18 16:57 | PC.NURSE ---
Telemetry dc'd per MD. [place] found pulled out when this nurse went to remove monitor. Resp therapist and housekeeper child care notified.
[2022-03-18] MEDS: LORazepam INJ (*CRX) 2 MG/ML VIAL 0.5 MG IV PUSH (18:04)
--- NOTE | 2022-03-18 18:10 | WPDPROCEDUR ---
Procedures Other Procedures Procedure 1: Other Procedure: Trach change Consent obtained, granulation tissue silver nitrated. 5.5 peds length uncuffed bivona trach placed successfully.
[2022-03-18] MEDS: WATER FOR IRRIGATION, STERILE 1,000 ML BOTTLE 1000 ML (18:12)
[2022-03-18 18:24] LABS: Glucose Point of Care 111 mg/dl (65-105)
[2022-03-18] MEDS: QUEtiapine FUMARATE 25 MG TABLET 50 MG FEED TUBE (21:09)
[2022-03-19] VITALS (10 sets, daily range): BP systolic 130–137; BP diastolic 69–90; PULSE 78–91; RESP 15–20; TEMP 36.4–36.6; O2SAT 91–99
[2022-03-19 00:02] LABS: Glucose Point of Care 107 mg/dl (65-105)
[2022-03-19] MEDS: AMPICILLIN SULB 3 GM/NS 100 ML 3 GM/100 ML VIAL IVPB ×5 (00:12→23:54)
[2022-03-19] MEDS: LANSOPRAZOLE ORAL SUSP 30 MG/10 ML ORAL.SUSP FEED TUBE (05:46)
[2022-03-19] MEDS: CENTRAL LINE FLUSH 10 ML IV PUSH ×3 (05:47→21:22)
[2022-03-19 07:01] LABS: Glucose Point of Care 133 mg/dl (65-105)
--- NOTE | 2022-03-19 07:55 | WPDGIPROGNO ---
Progress Note: A&P Assessment and Plan (1) PEG (percutaneous endoscopic gastrostomy) status: Code(s): Z93.1 - Gastrostomy status Status: Acute Assessment and Plan: peg tube appears in good place. Contrast study documented within the stomach. Patient currently tolerating tube feedings at previous rate. Should be noted that this new tube is a PEG tube with tube feedings being introduced into the patient's stomach. The tube removed was a PEJ tube with tube feedings that were placed more distally into the jejunum. Should patient experience regurgitation or continued difficulties we could consider referral for a PEJ tube but I feel this is unlikely at this stage with her tracheostomy she should tolerate the PEG tube feedings without difficulty. Subjective Date/time seen: 03/19/22 07:55 Patient alert comfortable this morning. Although nonverbal she is able to express that she is now tolerating new PEG tube feedings without difficulty. No regurgitation described. No abdominal pain noted. Review of Systems Review of Systems: Review of systems noncontributory. Exam Narrative: On physical exam patient is alert comfortable sitting in bed. Tube feedings active. HEENT exam reveals tracheostomy in place. Lungs reveal a few rhonchi. Abdomen is soft flat bowel sounds are present soft G-tube site appropriately healed nontender. Objective Data Vital Signs Vital Signs: Vital Signs - 24 hr 03/18/22 08:00 03/18/22 13:05 03/18/22 13:13 Temperature Pulse Rate 89 87 Respiratory Rate 24 H 22 H 22 H Blood Pressure Pulse Oximetry Oxygen Delivery Oxygen Flow Rate Fraction of Inspired Oxygen 03/18/22 13:53 03/18/22 08:00 03/18/22 08:00 Temperature 97 F L Pulse Rate 92 92 92 Respiratory Rate 22 H 22 H Blood Pressure 143/75 H Pulse Oximetry 99 99 Oxygen Delivery High Flow Therapy with Tr Oxygen Flow Rate 0 Fraction of Inspired Oxygen 21 03/18/22 21:09 03/18/22 21:34 03/18/22 20:35 Temperature 98.0 F Pulse Rate 110 H 93 82 Respiratory Rate 18 20 Blood Pressure 130/69 Pulse Oximetry 95 Oxygen Delivery Oxygen Flow Rate Fraction of Inspired Oxygen 03/18/22 20:35 03/18/22 22:37 03/19/22 05:32 Temperature 97.9 F Pulse Rate 84 86 Respiratory Rate 20 20 17 Blood Pressure 136/75 Pulse Oximetry 96 91 Oxygen Delivery High Flow Therapy with Tr Oxygen Flow Rate 30 Fraction of Inspired Oxygen 21 Intake/Output Intake/Output: Intake & Output 03/16/22 03/17/22 03/18/22 03/19/22 23:59 23:59 23:59 23:59 Intake Total 1845 1052 400 200 Output Total 800 800 Balance 1845 252 -400 200 Meds/Results Medications: Active Medications Generic Name Dose Route Start Last Admin Trade Name Freq PRN Reason Stop Dose Admin Acetaminophen 650 mg 03/12/22 14:34 03/17/22 09:32 Acetaminophen 325 Mg Tablet PO 650 mg Q4H PRN Administration Mild Pain (1-3) or Fever Albuterol 2.5 mg 03/16/22 20:00 03/18/22 20:34 Albuterol Sulfate Neb 2.5 Mg/3 Ml Inh INHALATION 2.5 mg T4AHIPT MARGY Administration Alprazolam 0.25 mg 03/12/22 20:59 03/16/22 20:25 Alprazolam (*Crx) 0.25 Mg Tablet FEED TUBE 0.25 mg DAILY PRN Administration Anxiety Clopidogrel Bisulfate 75 mg 03/13/22 09:00 03/18/22 08:15 Clopidogrel Bisulfate 75 Mg Tablet FEED TUBE 75 mg DAILY MARGY Administration Dextrose 12.5 gm 03/12/22 20:52 Dextrose 50% 25 Gm/50 Ml Syringe IV PUSH PRN PRN Hypoglycemia Protocol Ezetimibe 10 mg 03/13/22 09:00 03/18/22 08:15 Ezetimibe 10 Mg Tablet FEED TUBE 10 mg DAILY MARGY Administration Enoxaparin Sodium 40 mg 03/13/22 13:30 03/18/22 08:15 Enoxaparin 40 Mg/0.4 Ml Syringe SUB-Q 40 mg DAILY MARGY Administration Fluticasone Propionate 1 spray 03/12/22 20:59 Fluticasone Propionate 0.05% Na Spr 16 Gm Btl (*Bkc) NASAL Q12H PRN Congestion Gabapentin 100 mg
[2022-03-19] MEDS: EZETIMIBE 10 MG TABLET FEED TUBE (08:21)
[2022-03-19] MEDS: CLOPIDOGREL BISULFATE 75 MG TABLET FEED TUBE (08:21)
[2022-03-19] MEDS: GABAPENTIN 100 MG CAPSULE FEED TUBE ×2 (08:22→21:21)
[2022-03-19] MEDS: INSULIN GLARGINE (*BKC) 100 UNITS/ML 20 UNITS SUB-Q (08:22)
[2022-03-19] MEDS: MICONAZOLE NITRATE 2% CREAM 30 GM TUBE 1 APPLIC TOPICAL ×2 (08:23→21:22)
[2022-03-19] MEDS: METOPROLOL TARTRATE 12.5 MG TABLET FEED TUBE ×2 (08:23→21:21)
[2022-03-19] MEDS: ENOXAPARIN 40 MG/0.4 ML SYRINGE SUB-Q (08:39)
--- NOTE | 2022-03-19 12:00 | WPDCN ---
Assessment and Plan Assessment and plan (1) History of stroke: Code(s): Z86.73 - Personal history of transient ischemic attack (TIA), and cerebral infarction without residual deficits Status: Acute Plan Need for tracheostomy to be determined by attending physician. If yes, recommend replacing the trach, obturator is taped above bed. If unable to replace trach would ask for assistance from nursing service transformer repair supervisor, respiratory, ICU, and/or ER. Furthermore, if trach replaced would recommend restraining patient as she continues to pull the trach out. If this becomes emergent, Dr. Garcia is disaster or damage control specialist this week. Thank you. HPI Data of Consult Date/Time: 03/19/22 12:00 Requesting Physician: Evaristo Navarrete MD Primary Care Provider: Nenita Hernandez, SIGN MAINTENANCE Consult Narrative Narrative: Geovanna Marmolejo is a 56 year old female [facility] Past Medical History Medical History (Updated 03/16/22 @ 16:04 by Froylan Redd MD) Bipolar disorder Cerebrovascular accident Chronic obstructive pulmonary disease Coronary artery disease Nonobstructing disease, per patient report. Depression with anxiety Gastroesophageal reflux disease History of stroke Hypertension Paroxysmal atrial fibrillation Type 2 diabetes mellitus Surgical History Surgical History (Updated 03/18/22 @ 14:49 by Yunior Leon MD) History of percutaneous endoscopic gastrostomy History of tonsillectomy History of tracheostomy History of tubal ligation Family History Family History Father Diabetes mellitus Mother Cancer Breast cancer Sibling Hypertension Acute myocardial infarction Cerebrovascular accident History of blood clots Social History Social History (Updated 03/12/22 @ 20:40 by Vielka Moon PA-C) Social History: Surrogate decision maker: Catina Marmolejo, daughter. Code status: Do not resuscitate. Smoking packs per day: 2 Smoking cigarettes per day: 40.0 Years smoked: 40 Smoking pack-years: 80.00 Smoking status: Former smoker Tobacco type: cigarettes Additional smoking assessment comments: Quit in May 2021 following stroke. Spiritual care concerns: No Meds Home Medications and Allergies Home Medications Medication Instructions Recorded Confirmed Type hydrochlorothiazide 25 mg tablet 25 mg feeding tube DAILY 12/13/20 03/12/22 History metformin 500 mg tablet,extended 500 mg PO DAILY 12/13/20 03/12/22 History release 24 hr alprazolam 0.25 mg tablet 0.25 mg feeding tube DAILY PRN 03/12/22 03/12/22 History Anxiety clopidogrel 75 mg tablet 75 mg feeding tube DAILY 03/12/22 03/12/22 History ezetimibe 10 mg tablet 10 mg feeding tube DAILY 03/12/22 03/12/22 History fluticasone propionate 50 1 ea intranasal Q12H PRN Congestion 03/12/22 03/12/22 History mcg/actuation nasal spray,suspension gabapentin 100 mg capsule 100 cap feeding tube Q12H 03/12/22 03/12/22 History insulin glargine 100 unit/mL (3 20 ea subcut DAILY 03/12/22 03/12/22 History mL) subcutaneous pen (Lantus Solostar U-100 Insulin) metoprolol tartrate 25 mg tablet 12.5 mg feeding tube Q12H 03/12/22 03/12/22 History pantoprazole 40 mg tablet,delayed 40 mg PO DAILY 03/12/22 03/12/22 History release polyethylene glycol 3350 17 gram 17 g PO DAILY PRN Constipation 03/12/22 03/12/22 History oral powder packet (Miralax) quetiapine 50 mg tablet 50 mg feeding tube HS 03/12/22 03/12/22 History scopolamine base 1 mg over 3 days 1 mg transdermal Q72H 03/12/22 03/12/22 History transdermal patch Allergies Allergy/AdvReac Type Severity Reaction Status Date / Time losartan Allergy Hives Verified 03/12/22 18:44 metoclopramide [From Reglan] Allergy Hives Verified 03/12/22 18:44 Vital Signs Vital Signs - 24 hr 03/18/22 13:05 03/18/22 13:13 03/18/22 13:53 Temperature 36.1 C L Pulse Rate 89 87 92 Respiratory Rate 22 H 22 H 22 H Blood Press
[2022-03-19 12:06] LABS: Glucose Point of Care 131 mg/dl (65-105)
--- NOTE | 2022-03-19 12:21 | PM.IMPN ---
Progress Note: A&P Assessment and Plan (1) Pneumonia: Code(s): J18.9 - Pneumonia, unspecified organism Status: Acute (2) Bacteremia: Code(s): R78.81 - Bacteremia Status: Acute (3) Non-STEMI (non-ST elevated myocardial infarction): Code(s): I21.4 - Non-ST elevation (NSTEMI) myocardial infarction Status: Acute (4) Takotsubo cardiomyopathy: Code(s): I51.81 - Takotsubo syndrome Status: Acute (5) Tracheostomy complication: Code(s): J95.00 - Unspecified tracheostomy complication Status: Acute (6) Type 2 diabetes mellitus: Code(s): E11.9 - Type 2 diabetes mellitus without complications Status: Acute (7) Paroxysmal atrial fibrillation: Code(s): I48.0 - Paroxysmal atrial fibrillation Status: Acute (8) Chronic obstructive pulmonary disease: Code(s): J44.9 - Chronic obstructive pulmonary disease, unspecified Status: Acute (9) Cerebrovascular accident: Code(s): I63.9 - Cerebral infarction, unspecified Status: Acute Plan # Tracheostomy was dislodged 03/11 in the evening and was replaced by her daughter; patient developed respiratory distress the following morning (the morning of admission). Tracheostomy was exchanged by Dr. Jimenez in the ED. We continued routine tracheostomy care and added humidified air. Pulmonary consulted and they followed along. # Elevated troponin: Patient denies having chest pain however her troponins on admission increased to 3.0.??EKG showing ST-T wave changes in the inferior leads. Echo showing EF 40-45% with akinesis of the apical part of the LV typical of takotsubo CMP. Elevated Trop?related to respiratory distress and hypoxemic episode resulting in?takotsubo?CMP. No hx of CAD. Repeat CXR showing bibasilar airspace disease. Cardiology was consulted and appreciate their input. She cannot take statin therapy. Losartan causes hives. We continued Plavix, Lopressor and Zetia. # Diabetes mellitus type 2: A1c 6.4. The patient's blood glucose was monitored with AccuCheks covering with sliding scale.? Hypoglycemia protocol was available as needed. She tolerated her tube feedings. We continued Lantus. # status post tracheostomy and g tube placement since stroke. # bialteral Pneumonia: Chest x-ray on admission showed bilateral interstitial infiltrates pneumonia verses edema. Suspected pneumonia given increasing, thick secretions and recent trach change under stressful conditions. # Bacteremia: Blood cultures (1 of 2) have returned positive for Acinetobacter from aerobic bottle only. Patient was refusing labs and repeat BCx. Sputum had?growth of normal oropharyngeal crystal.?SARS-CoV-2 by PCR was negative. Suspect source of bacteremia is from the the lung and maybe chronically colonized with transient bacteremia related to the traumatic replacement of trach. She was treated with Zosyn. Echo showing no evidence of vegetations. Literature review showing Unasyn (Sulbactam) is a better choice so abx changed to Unasyn 3gm Q6H. Discussed with Pulmonary and PharD ID with plans to treat with Unasyn as outpatient for a total of 2 weeks ov IV abx. PICC line was placed. Plan for patient to be on a continuous infusion of the Unasyn. She is current with [facility] but they will not be able to provide the IV abx until 03/19/22 so discharge was held. # PEG tube dysfunction: PEG tube cracked and was discovered that she has a J tube. THis admission PEG tube was introduced by GI this admission 03/18/2022 and not a PEJ tube. tube feeds restarted. Review of chart revels that she has already following for this trach at another facility and had attempts to taper off. We are not deciding to taper off tracheostomy particularly when there are several issues with secretions and respiratory distres, risk of aspiration and ongoing dysphagia on her. ALSO NEED FOR TRACHEOSTOMY NEED TO BE ASSESSED/DETERMINED BY ENT SPECIALISTS THAT ARE FOLLOWING THE PATIENT.
[2022-03-19] MEDS: IPRATROPIUM BR 0.02% INH SOLN 0.5 MG/2.5 ML VIAL INHALATION ×2 (13:51→19:55)
[2022-03-19] MEDS: ALBUTEROL SULFATE NEB 2.5 MG/3 ML INH INHALATION ×2 (13:51→19:55)
--- NOTE | 2022-03-19 14:25 | PCPTNOTE ---
Attempted to see patient for PT this afternoon, however patient declined due to patient needing to bed cleaned up. Notified nursing.
--- NOTE | 2022-03-19 14:38 | PCPTNOTE ---
Returned to attempt PT treatment this afternoon, however patient continued to refuse treatment this afternoon.
[2022-03-19 17:26] LABS: Glucose Point of Care 130 mg/dl (65-105)
[2022-03-19] MEDS: QUEtiapine FUMARATE 25 MG TABLET 50 MG FEED TUBE (21:21)
[2022-03-20] VITALS (12 sets, daily range): BP systolic 120–131; BP diastolic 49–71; PULSE 80–92; RESP 15–20; TEMP 36.2–36.5; O2SAT 90–99
[2022-03-20 00:01] LABS: Glucose Point of Care 161 mg/dl (65-105)
[2022-03-20] MEDS: AMPICILLIN SULB 3 GM/NS 100 ML 3 GM/100 ML VIAL IVPB ×3 (05:38→17:59)
[2022-03-20] MEDS: CENTRAL LINE FLUSH 10 ML IV PUSH ×3 (05:39→21:05)
[2022-03-20] MEDS: LANSOPRAZOLE ORAL SUSP 30 MG/10 ML ORAL.SUSP FEED TUBE (05:39)
[2022-03-20] MEDS: WATER FOR IRRIGATION, STERILE 1,000 ML BOTTLE 1000 ML (05:39)
[2022-03-20 06:37] LABS: Glucose Point of Care 165 mg/dl (65-105)
[2022-03-20] MEDS: IPRATROPIUM BR 0.02% INH SOLN 0.5 MG/2.5 ML VIAL INHALATION ×3 (08:44→19:56)
[2022-03-20] MEDS: ALBUTEROL SULFATE NEB 2.5 MG/3 ML INH INHALATION ×3 (08:45→19:56)
[2022-03-20] MEDS: ENOXAPARIN 40 MG/0.4 ML SYRINGE SUB-Q (09:11)
[2022-03-20] MEDS: EZETIMIBE 10 MG TABLET FEED TUBE (09:12)
[2022-03-20] MEDS: METOPROLOL TARTRATE 12.5 MG TABLET FEED TUBE ×2 (09:12→21:02)
[2022-03-20] MEDS: GABAPENTIN 100 MG CAPSULE FEED TUBE ×2 (09:12→21:02)
[2022-03-20] MEDS: CLOPIDOGREL BISULFATE 75 MG TABLET FEED TUBE (09:12)
[2022-03-20] MEDS: INSULIN GLARGINE (*BKC) 100 UNITS/ML 20 UNITS SUB-Q (09:12)
[2022-03-20] MEDS: MICONAZOLE NITRATE 2% CREAM 30 GM TUBE 1 APPLIC TOPICAL ×2 (09:31→21:18)
--- NOTE | 2022-03-20 10:30 | PCOTNOTE ---
Attempted to see patient this am, however patient was with physical therapy.
[2022-03-20 11:44] LABS: Glucose Point of Care 169 mg/dl (65-105)
--- NOTE | 2022-03-20 12:19 | PM.IMPN ---
Progress Note: A&P Assessment and Plan (1) Pneumonia: Code(s): J18.9 - Pneumonia, unspecified organism Status: Acute (2) Bacteremia: Code(s): R78.81 - Bacteremia Status: Acute (3) Non-STEMI (non-ST elevated myocardial infarction): Code(s): I21.4 - Non-ST elevation (NSTEMI) myocardial infarction Status: Acute (4) Takotsubo cardiomyopathy: Code(s): I51.81 - Takotsubo syndrome Status: Acute (5) Tracheostomy complication: Code(s): J95.00 - Unspecified tracheostomy complication Status: Acute (6) Type 2 diabetes mellitus: Code(s): E11.9 - Type 2 diabetes mellitus without complications Status: Acute (7) Paroxysmal atrial fibrillation: Code(s): I48.0 - Paroxysmal atrial fibrillation Status: Acute (8) Chronic obstructive pulmonary disease: Code(s): J44.9 - Chronic obstructive pulmonary disease, unspecified Status: Acute (9) Cerebrovascular accident: Code(s): I63.9 - Cerebral infarction, unspecified Status: Acute Plan # Tracheostomy was dislodged 03/11 in the evening and was replaced by her daughter; patient developed respiratory distress the following morning (the morning of admission). Tracheostomy was exchanged by Dr. Jimenez in the ED. We continued routine tracheostomy care and added humidified air. Pulmonary consulted and they followed along. # Elevated troponin: Patient denies having chest pain however her troponins on admission increased to 3.0.??EKG showing ST-T wave changes in the inferior leads. Echo showing EF 40-45% with akinesis of the apical part of the LV typical of takotsubo CMP. Elevated Trop?related to respiratory distress and hypoxemic episode resulting in?takotsubo?CMP. No hx of CAD. Repeat CXR showing bibasilar airspace disease. Cardiology was consulted and appreciate their input. She cannot take statin therapy. Losartan causes hives. We continued Plavix, Lopressor and Zetia. # Diabetes mellitus type 2: A1c 6.4. The patient's blood glucose was monitored with AccuCheks covering with sliding scale.? Hypoglycemia protocol was available as needed. She tolerated her tube feedings. We continued Lantus. # status post tracheostomy and g tube placement since stroke. # bialteral Pneumonia: Chest x-ray on admission showed bilateral interstitial infiltrates pneumonia verses edema. Suspected pneumonia given increasing, thick secretions and recent trach change under stressful conditions. # Bacteremia: Blood cultures (1 of 2) have returned positive for Acinetobacter from aerobic bottle only. Patient was refusing labs and repeat BCx. Sputum had?growth of normal oropharyngeal crystal.?SARS-CoV-2 by PCR was negative. Suspect source of bacteremia is from the the lung and maybe chronically colonized with transient bacteremia related to the traumatic replacement of trach. She was treated with Zosyn. Echo showing no evidence of vegetations. Literature review showing Unasyn (Sulbactam) is a better choice so abx changed to Unasyn 3gm Q6H. Discussed with Pulmonary and PharD ID with plans to treat with Unasyn as outpatient for a total of 2 weeks ov IV abx. PICC line was placed. Plan for patient to be on a continuous infusion of the Unasyn. She is current with [facility] Home [facility] but they will not be able to provide the IV abx until 03/19/22 so discharge was held. Awaiting IV antibiotics at discharge plan for 2 weeks total course of Unasyn 3 g every 6 hours. In dated 03/26/2022 # PEG tube dysfunction: PEG tube cracked and was discovered that she has a J tube. THis admission PEG tube was introduced by GI this admission 03/18/2022 and not a PEJ tube. tube feeds restarted. Review of chart revels that she has already following for this trach at another facility and had attempts to taper off. We are not deciding to taper off tracheostomy particularly when there are several issues with secretions and respiratory distres, risk of aspiration and ongoing dysphagia
[2022-03-20 17:43] LABS: Glucose Point of Care 152 mg/dl (65-105)
[2022-03-20] MEDS: QUEtiapine FUMARATE 25 MG TABLET 50 MG FEED TUBE (21:02)
[2022-03-21] MEDS: AMPICILLIN SULB 3 GM/NS 100 ML 3 GM/100 ML VIAL IVPB ×2 (00:13→05:40)
[2022-03-21 00:21] LABS: Glucose Point of Care 150 mg/dl (65-105)
[2022-03-21] MEDS: CENTRAL LINE FLUSH 10 ML IV PUSH (05:40)
[2022-03-21] MEDS: LANSOPRAZOLE ORAL SUSP 30 MG/10 ML ORAL.SUSP FEED TUBE (05:40)
[2022-03-21 06:00] VITALS: BP 149/74; PULSE 76; RESP 20; TEMP 36.4; O2SAT 100
[2022-03-21 06:59] LABS: Glucose Point of Care 160 mg/dl (65-105)
[2022-03-21 07:56] LABS: Glucose Point of Care 178 mg/dl (65-105)
[2022-03-21 08:25] VITALS: PULSE 77; RESP 20; O2SAT 96
[2022-03-21] MEDS: IPRATROPIUM BR 0.02% INH SOLN 0.5 MG/2.5 ML VIAL INHALATION (08:25)
[2022-03-21] MEDS: ALBUTEROL SULFATE NEB 2.5 MG/0.5 ML INH (08:25)
[2022-03-21 08:35] VITALS: PULSE 83; RESP 20
[2022-03-21] MEDS: MICONAZOLE NITRATE 2% CREAM 30 GM TUBE 1 APPLIC TOPICAL (09:19)
[2022-03-21] MEDS: ENOXAPARIN 40 MG/0.4 ML SYRINGE SUB-Q (09:19)
[2022-03-21] MEDS: GABAPENTIN 100 MG CAPSULE FEED TUBE (09:19)
[2022-03-21] MEDS: SCOPOLAMINE 1.5 MG PATCH TRANSDERM (09:19)
[2022-03-21] MEDS: METOPROLOL TARTRATE 12.5 MG TABLET FEED TUBE (09:19)
[2022-03-21] MEDS: CLOPIDOGREL BISULFATE 75 MG TABLET FEED TUBE (09:19)
[2022-03-21] MEDS: EZETIMIBE 10 MG TABLET FEED TUBE (09:19)
[2022-03-21] MEDS: INSULIN GLARGINE (*BKC) 100 UNITS/ML 20 UNITS SUB-Q (09:20)
--- NOTE | 2022-03-21 09:50 | PM.DS ---
DS: Admitting Diagnosis Discharge Date 03/21/2022 Admitting Diagnosis Shortness of breath DS: Discharge Diagnosis Discharge Diagnosis (1) Pneumonia: Code(s): J18.9 - Pneumonia, unspecified organism Status: Acute (2) Bacteremia: Code(s): R78.81 - Bacteremia Status: Acute (3) Non-STEMI (non-ST elevated myocardial infarction): Code(s): I21.4 - Non-ST elevation (NSTEMI) myocardial infarction Status: Acute (4) Takotsubo cardiomyopathy: Code(s): I51.81 - Takotsubo syndrome Status: Acute (5) Tracheostomy complication: Code(s): J95.00 - Unspecified tracheostomy complication Status: Acute (6) Type 2 diabetes mellitus: Code(s): E11.9 - Type 2 diabetes mellitus without complications Status: Acute (7) Paroxysmal atrial fibrillation: Code(s): I48.0 - Paroxysmal atrial fibrillation Status: Acute (8) Chronic obstructive pulmonary disease: Code(s): J44.9 - Chronic obstructive pulmonary disease, unspecified Status: Acute (9) Cerebrovascular accident: Code(s): I63.9 - Cerebral infarction, unspecified Status: Acute DS: Summary Hospital Course Hospital Course: # Tracheostomy was dislodged 03/11 in the evening and was replaced by her daughter; patient developed respiratory distress the following morning (the morning of admission). Tracheostomy was exchanged by Dr. Jimenez in the ED. We continued routine tracheostomy care and added humidified air. Pulmonary consulted and they followed along. Patient tracheostomy tube fell off multiple other times during the hospital stay which was replaced by ENT. She will continue to follow-up with her regular ENT at [facility] with regard to her tracheostomy 2 care # Elevated troponin: Patient denies having chest pain however her troponins on admission increased to 3.0.??EKG showing ST-T wave changes in the inferior leads. Echo showing EF 40-45% with akinesis of the apical part of the LV typical of takotsubo CMP. Elevated Trop?related to respiratory distress and hypoxemic episode resulting in?takotsubo?CMP. No hx of CAD. Repeat CXR showing bibasilar airspace disease. Cardiology was consulted and appreciate their input. She cannot take statin therapy. Losartan causes hives. We continued Plavix, Lopressor and Zetia. # Diabetes mellitus type 2: A1c 6.4. The patient's blood glucose was monitored with AccuCheks covering with sliding scale.? Hypoglycemia protocol was available as needed. She tolerated her tube feedings. Continued on Lantus home dose during the hospital stay # status post tracheostomy and g tube placement since stroke. # bialteral Pneumonia: Chest x-ray on admission showed bilateral interstitial infiltrates pneumonia verses edema. Suspected pneumonia given increasing, thick secretions and recent trach change under stressful conditions. Continue suction as needed routine trach care oxygen supplementation and antibiotics as ordered # Bacteremia: Blood cultures (1 of 2) have returned positive for Acinetobacter from aerobic bottle only. Patient was refusing labs and repeat BCx. Sputum had?growth of normal oropharyngeal crystal.?SARS-CoV-2 by PCR was negative. Suspect source of bacteremia is from the the lung and maybe chronically colonized with transient bacteremia related to the traumatic replacement of trach. She was treated with Zosyn. Echo showing no evidence of vegetations. Literature review showing Unasyn (Sulbactam) is a better choice so abx changed to Unasyn 3gm Q6H.? Discussed with Pulmonary and PharD ID with plans to treat with Unasyn as outpatient for a total of 2 weeks ov IV abx. PICC line was placed. Plan for patient to be on a continuous infusion of the Unasyn. She is current with [facility] Home Health this was arranged with the help of care coordination. Unasyn will continue until 03/26/2022. # PEG tube dysfunction: PEG tube cracked and was discovered that she has a J tube. THis admission PEG tube was
== END 2022-03-21 11:06 | disposition home health service (06) | DRG 194 ==
LOC: ANHED 14:32 → ANHICU 15:08 → ANH3MEDSUR 03-14 15:42
PROVIDERS: Internal Medicine; Physician Assistant; Admitting Provider Family Medicine; Emergency Provider Family Medicine; PCP Nurse Practitioner Family; Visit Provider Internal Medicine
DX: J18.9 Pneumonia, unspecified organism (principal); I51.81 Takotsubo syndrome; I69.354 Hemiplegia and hemiparesis following cerebral infarction affecting left non-dominant side; J95.03 Malfunction of tracheostomy stoma; R78.81 Bacteremia; K94.13 Enterostomy malfunction; J44.0 Chronic obstructive pulmonary disease with (acute) lower respiratory infection; B96.89 Other specified bacterial agents as the cause of diseases classified elsewhere; I69.320 Aphasia following cerebral infarction; Z20.822 Contact with and (suspected) exposure to COVID-19; E11.9 Type 2 diabetes mellitus without complications; F31.9 Bipolar disorder, unspecified; F41.8 Other specified anxiety disorders; I48.0 Paroxysmal atrial fibrillation; I10 Essential (primary) hypertension; K21.9 Gastro-esophageal reflux disease without esophagitis; R06.03 Acute respiratory distress; R77.8 Other specified abnormalities of plasma proteins; T45.515A Adverse effect of anticoagulants, initial encounter; Z79.4 Long term (current) use of insulin; Z87.891 Personal history of nicotine dependence; Z66 Do not resuscitate; Z79.02 Long term (current) use of antithrombotics/antiplatelets; Z79.84 Long term (current) use of oral hypoglycemic drugs
CPT/HCPCS: 36415; 36569; 49450; 71045; 80048; 80053; 80069; 80076; 81003; 82728; 82948; 83036; 83615; 83735; 83880; 84100; 84484; 85025; 85610; 87040; 87070; 87077; 87186; 87205; 87449; 87899; 92507; 92523; 93005; 93306; 94640; 96361; 96365; 96367; 96372; 96375; 97110; 97161; 97165; 97530; 99285; A4629; A9270; C1751; C9803; G0378; J0295; J0456; J0696; J1100; J1650; J1815; J2060; J2270; J2405; J2543; J7030; U0003; U0005

== ENCOUNTER 2022-04-22 17:50 | Emergency (ER) | payer MEDICARE, MEDICAID, SELFPAY ==
[2022-04-22 18:03] VITALS: BP 112/71; PULSE 105; RESP 18; TEMP 36.9; O2SAT 95
--- NOTE | 2022-04-22 18:21 | ED.WOUNDLAC ---
HPI - Wound/Laceration General Chief Complaint: Wound/Laceration Stated Complaint: Wound on Toe Time Seen by Provider: 04/22/22 18:09 Source: patient and family Mode of arrival: wheelchair Limitations: no limitations History of Present Illness HPI narrative: Patient and family present today complaining of a wound to her left second toe. States she scraped it getting in and out of her car 1 week ago and the wound has continued to worsen making her toe red. She is up-to-date on her tetanus vaccine. The injury does cause pain. Patient's doctor wanted her checked out as she is diabetic. Related Data Home Medications Medication Instructions Recorded Confirmed hydrochlorothiazide 25 mg tablet 25 mg feeding tube DAILY 12/13/20 04/22/22 metformin 500 mg tablet,extended 500 mg PO DAILY 12/13/20 04/22/22 release 24 hr alprazolam 0.25 mg tablet 0.25 mg feeding tube DAILY PRN 03/12/22 04/22/22 Anxiety clopidogrel 75 mg tablet 75 mg feeding tube DAILY 03/12/22 04/22/22 ezetimibe 10 mg tablet 10 mg feeding tube DAILY 03/12/22 04/22/22 gabapentin 100 mg capsule 100 cap feeding tube Q12H 03/12/22 04/22/22 insulin glargine 100 unit/mL (3 20 ea subcut DAILY 03/12/22 04/22/22 mL) subcutaneous pen (Lantus Solostar U-100 Insulin) metoprolol tartrate 25 mg tablet 12.5 mg feeding tube Q12H 03/12/22 04/22/22 pantoprazole 40 mg tablet,delayed 40 mg PO DAILY 03/12/22 04/22/22 release polyethylene glycol 3350 17 gram 17 g PO DAILY PRN Constipation 03/12/22 04/22/22 oral powder packet (Miralax) quetiapine 50 mg tablet 50 mg feeding tube HS 03/12/22 04/22/22 albuterol sulfate 90 mcg/actuation 90 mcg inhalation DIRECTED 04/22/22 04/22/22 aerosol inhaler atorvastatin 80 mg tablet 75 mg PO DAILY 04/22/22 04/22/22 ipratropium 0.5 mg-albuterol 3 mg 3 ml inhalation DIRECTED 04/22/22 04/22/22 (2.5 mg base)/3 mL nebulization soln Allergies Allergy/AdvReac Type Severity Reaction Status Date / Time losartan Allergy Hives Verified 04/22/22 17:54 metoclopramide [From Reglan] Allergy Hives Verified 04/22/22 17:54 Review of Systems Review of Systems: CONSTITUTIONAL: Denies body aches, fever, chills, or sweats. EYES: Denies visual changes, redness, or discharge. ENT: Denies rhinorrhea, congestion, sore throat, or otalgia. CARDIOVASCULAR: Denies chest pain, palpitations, or edema. RESPIRATORY: Denies cough or dyspnea. GASTROINTESTINAL: Denies abdominal pain, nausea, vomiting, or diarrhea. GENITOURINARY: Denies dysuria or hematuria. SKIN: Denies rash, itching. + Left second toe injury MUSCULOSKELETAL: Denies back pain, joint pain, or myalgia. NEUROLOGIC: Denies headache, numbness, tingling, or weakness. PSYCH: Denies depression or anxiety. [facility] Past Medical History Medical History Bipolar disorder Cerebrovascular accident Chronic obstructive pulmonary disease Coronary artery disease Nonobstructing disease, per patient report. Depression with anxiety Gastroesophageal reflux disease History of stroke Hypertension Paroxysmal atrial fibrillation Type 2 diabetes mellitus Surgical History Surgical History History of percutaneous endoscopic gastrostomy History of tonsillectomy History of tracheostomy History of tubal ligation Family History Family History Father Diabetes mellitus Mother Cancer Breast cancer Sibling Hypertension Acute myocardial infarction Cerebrovascular accident History of blood clots Social History Social History Social History: Surrogate decision maker: Catina Marmolejo, daughter. Code status: Do not resuscitate. Smoking packs per day: 2 Smoking cigarettes per day: 40.0 Years smoked: 40 Smoking pack-years: 80.00 Smoking status: Bean
== END 2022-04-22 18:35 | disposition home or self-care (01) ==
PROVIDERS: Emergency Provider Nurse Practitioner
DX: L03.032 Cellulitis of left toe (principal); Z87.891 Personal history of nicotine dependence; Z86.73 Personal history of transient ischemic attack (TIA), and cerebral infarction without residual deficits; I25.10 Atherosclerotic heart disease of native coronary artery without angina pectoris; K21.9 Gastro-esophageal reflux disease without esophagitis; I10 Essential (primary) hypertension; I48.0 Paroxysmal atrial fibrillation; E11.9 Type 2 diabetes mellitus without complications; F31.9 Bipolar disorder, unspecified; F41.9 Anxiety disorder, unspecified; Z79.4 Long term (current) use of insulin; Z79.84 Long term (current) use of oral hypoglycemic drugs
CPT/HCPCS: 99213; G0463